=== PATIENT | female | born 1945 | race Caucasian/White ===

== ENCOUNTER → 2023-10-26 10:21 | Outpatient (REF) | payer OTHER, SELFPAY | LOC: RAD 10:21 | PROVIDERS: ATTENDING PHYSICIAN Nurse Practitioner Family | DX: M54.42 Lumbago with sciatica, left side (principal) | CPT/HCPCS: 72110 ==

== ENCOUNTER → 2023-11-01 06:46 | Outpatient (REF) | payer OTHER, SELFPAY | LOC: PAVMRI 06:46 | PROVIDERS: ATTENDING PHYSICIAN Physician Assistant; FAMILY PHYSICIAN Family Medicine | DX: M54.16 Radiculopathy, lumbar region (principal) | CPT/HCPCS: 72148 ==

== ENCOUNTER 2023-11-22 10:27 | Emergency (ER) | payer OTHER, SELFPAY ==
[2023-11-22 10:40] VITALS: BP 140/91
[2023-11-22 10:47] LABS: Glucose - Point of Care 208 mg/dl (70-99)
[2023-11-22] MEDS: NSS 1000 IV (11:44)
[2023-11-22] MEDS: ZOFRAN 4 MG IV ×2 (11:51→16:15)
[2023-11-22 11:55] LABS: % Basophils 0.2 % (0-2); % Eosinophils 0.1 % (0-6); % Immature Granulocytes 0.3 % (0-0.5); % Lymphocytes 13.7 % (20.5-51.1); % Monocytes 7.2 % (1.7-9.3); % Neutrophils 78.5 % (42.2-75.2); Absolute Lymphocytes 1.6 10^3/uL (1.2-3.4); Absolute Monocytes 0.9 10^3/uL (0.1-0.6); Absolute Neutrophils 9.3 10^3/uL (1.4-6.5); Hematocrit 45.5 % (37.0-47.0); Hemoglobin 15.5 g/dL (12.0-16.0); Mean Corp Hgb Conc. 34.1 g/dL (33.0-37.0); Mean Corpuscular Volume 88.2 fL (81.0-99.0); Mean Platelet Volume 10.3 fL (7.4-10.4); Nucleated Red Blood Cells % 0 %; Platelet Count 236 10^3/uL (130-400); Red Blood Cell Count 5.16 10^6/uL (4.20-5.40); Red Cell Dist. Width 13.5 % (11.5-14.5); White Blood Cell Count 11.9 10^3/uL (4.8-10.8)
[2023-11-22 12:09] LABS: ALT (SGPT) 36 U/L (0-35); AST (SGOT) 31 U/L (14-36); Albumin 4.1 g/dl (3.5-5.0); Alkaline Phosphatase 95 U/L (38-126); Blood Urea Nitrogen 24 mg/dl (7-17); Calcium 9.6 mg/dl (8.4-10.2); Carbon Dioxide 19 mmol/L (22-30); Chloride 107 mmol/L (98-107); Glucose 164 mg/dl (70-99); Lipase 122 U/L (23-300); Potassium 3.4 mmol/L (3.5-5.1); Sodium 135 mmol/L (135-145); Total Bilirubin 1.1 mg/dl (0.2-1.3); Total Protein 6.6 g/dl (6.3-8.2); eGFR > 60.00
[2023-11-22 12:20] LABS: Troponin I < 0.012 ng/ml
[2023-11-22 13:47] LABS: Urine Albumin Trace (Neg - Trace); Urine Bilirubin Negative (Negative); Urine Character Clear (Clear); Urine Color Yellow; Urine Glucose Negative (Negative); Urine Ketone 2+ (Negative); Urine Leukocyte 1+ (Negative); Urine Nitrite Negative (Negative); Urine Occult Blood Trace (Negative); Urine Urobilinogen Negative (Neg - 1+); Urine pH 6.5 (5.0-9.0)
[2023-11-22 14:07] LABS: Urine Mucus Many; Urine Squamous Cell 21-25 /LPF (Few)
[2023-11-22 14:09] LABS: Urine Bacteria Many (Negative); Urine Red Blood Cell 0-2 /HPF (0-2); Urine White Cell 60-70 /HPF (0-5)
[2023-11-22 14:42] VITALS: BP 185/88
[2023-11-22 14:44] VITALS: BP 185/88
--- NOTE | 2023-11-22 15:42 | ED.GENMED ---
Addendum entered and electronically signed by Dread Montero Jr., PA-C 11/26/23 09:22:
Patient was contacted already started on antibiotics by the primary care doctor that reviewed the culture result.
Original Note:
History of Present Illness
General
Chief Complaint: Abnormal Lab Value
Source: patient, spouse and family
Exam Limitations: none
Time Seen by Provider: 11/22/23 11:02
Nursing documentation reviewed up to this point in time: agreed with
Travel History
Have you had any contact with someone who has COVID-19?: No
Do you have any symptoms of coronavirus? Fever > 100 degrees, chills, cough, shortness of breath, sore throat, loss of taste or smell, muscle aches, or headache?: No
History of Present Illness
History of Present Illness:
78-year-old female with Melba history of diabetes and chronic back pain recent epidural of 3 days ago for the back pain presenting to the emergency department today with concerns of nausea vomiting diarrhea as well as abdominal cramping of 24
hours. Additionally claims that she abruptly stopped oxycodone that she was taking 40 mg daily for 2 weeks stopped this 3 days ago. Denies chest pain shortness breath has had some shakiness. Denies numbness weakness.
Review of Systems
Review of Systems
Allergies reviewed?: Yes
All Other Systems: ROS reviewed and negative except as documented in HPI and ROS
Phy Exam
Physical Exam
Physical Exam:
GENERAL: Alert , in no apparent distress
EYE: pupils equal and reactive
NECK: Supple, no significant adenopathy.
ENT: o/p clr, mmm.
CARDIAC: Regular rate and rhythm .
LUNGS: Clear breath sounds bilaterally, no acute respiratory distress, no wheezes/rales/rhonchi
ABDOMEN: Mild vague abdominal pain no specific guarding
NEUROLOGICAL: Alert and oriented, no focal neuro deficits
SKIN: Warm and dry, skin intact.
MUSCULOSKELETAL: No edema, well perfused.
PSYCH: Normal and appropriate interaction.
Course
Orders/Labs/Results
Orders:
Orders
11/22/23 11:29
Cardiac Monitoring- Treatment ONCE
0.9% Sodium Chloride 1000 ml [Nss] 1,000 ml IV BOLUS
Ondansetron Injectable [Zofran] 4 mg IV NOW STA
11/22/23 11:36
EKG [Electrocardiogram (*1)] Urgent
Reason for Study: Fatigue / Weakness
EKG- Treatment ONCE
11/22/23 11:42
Complete Blood Count/With Diff Urgent
Comprehensive Metabolic Panel Urgent
Lactic Acid Urgent
Lipase Urgent
Troponin I Urgent
11/22/23 12:29
CT Abd/Pel (IV only)-DH only Urgent
Comment:
Reason For Exam: abd pain
11/22/23 13:35
Urinalysis Reflex To Culture Urgent
Date Specimen was Collected: 11/22/23
Time Specimen was Collected: 13:34
Urine Microscopic Reflex Cult Urgent
Urine Culture Urgent
INDY Source: U
Specimen Description:
Date Specimen was Collected: 11/22/23
Time Specimen was Collected: 13:34
11/22/23 15:42
Ondansetron Injectable [Zofran] 4 mg IV NOW STA
Abnormal Lab Results
11/22/23 11/22/23 11/22/23
10:44 11:42 13:35
WBC 11.9 H 10^3/uL
(4.8-10.8)
Absolute Neuts (auto) 9.3 H 10^3/uL
(1.4-6.5)
Absolute Monos (auto) 0.9 H 10^3/uL
(0.1-0.6)
Neutrophils % 78.5 H %
(42.2-75.2)
Lymphocytes % 13.7 L %
(20.5-51.1)
Potassium 3.4 L mmol/L
(3.5-5.1)
Carbon Dioxide 19 L mmol/L
(22-30)
BUN 24 H mg/dl
(7-17)
Glucose 164 H mg/dl
(70-99)
ALT 36 H U/L
(0-35)
Urine Ketones 2+ A
(Negative)
Ur Occult Blood Reflex Trace A
(Negative)
Leukocyte Esterase Rfl 1+ A
(Negative)
Urine WBC (Reflex) 60-70 A /HPF
(0-5)
Urine Bacteria (Reflex) Many A
(Negative)
POC Glucose 208 H mg/dl
(70-99)
11/22/23 11:42
11/22/23 11:42
Vital Signs
Initial and Last Documented VS:
Initial Vital Signs
Temp Pulse Resp BP Pulse Ox
97.3 F 77 18 140/91 98
11/22/23 10:40 11/22/23 10:40 11/22/23 10:40 11/22/23 10:40 11/22/23 10:40
Last Documented Vital Signs
Temp Pulse Resp BP Pulse Ox
97.3 F 75 25 185/88 97
11/22/23 10:40 11/22/23 14:44 11/22/23 14:44 11/22/23 14:44 11/22/23 14:44
MDM/Problems Addressed
MDM/Problems Addressed:
78-year-old female presenting to the emergency department today with concerns of nausea vomiting diarrhea over the past 24 hours. Upon arrival here vital signs normal. Patient appears somewhat uncomfortable and is dry heaving. She does have some
tenderness throughout the abdomen concerning the CT scan was obtained white count of 11.9 slightly dry on labs was given fluids with Zofran as well with improvement of symptoms. Did have 1 episode of vomiting after multiple hours in the ER. CT
scan showing likely gastroenteritis and otherwise incidental findings. At time of reassessment after this patient claims she feels much better she was given additional dose of Zofran and this point feels okay for discharge. Consistent
gastroenteritis potentially to some degree of opioid withdrawal considering abrupt cessation after 2 weeks of continuous use.
*Critical Care Note
Total Time (30-74mins, 75-104mins- exclusive of procedures): Not Applicable
ED Attending Note
-
Portions of this chart may have been created with voice recognition software.� Occasional wrong word or��sound alike� substitutions may have occurred due to the inherent limitations of voice recognition software.
Discharge Plan
Departure
Patient Disposition: Home (Routine Discharge)
Date of Disposition: 11/22/23
Time of Disposition: 15:59
Patient with high blood pressure during this ER visit?: No
Condition: Good
Covid-19: Not Applicable
Discharge Problem:
Vomiting, Generalized weakness, Tremor
Instructions: Viral gastroenteritis in adults
Prescriptions:
New
ondansetron 4 mg tablet,disintegrating
4 mg PO Q6H PRN (Reason: nausea and vomiting) Qty: 7 0RF
No Action
atorvastatin 40 mg Tablet
40 mg PO HS
acetaminophen [Tylenol] 325 mg Tablet
650 mg PO DAILYPRN PRN (Reason: mild pain)
polyethylene glycol 3350 [Miralax] 17 gram Powder In Packet
17 g PO DAILY
lisinopril 20 mg Tablet
20 mg PO DAILY
famotidine 40 mg Tablet
40 mg PO QPM
aspirin 81 mg Tablet,Delayed Release (Dr/Ec)
81 mg PO HS
Januvia 25 mg Tablet
25 mg PO DAILY
Referrals:
Shirley Castillo DO [Family Provider] -
Activity Restrictions/Additional Instructions:
You came to the emergency department today with concerns of nausea vomiting diarrhea abdominal cramping here you had a reassuring evaluation your CT scan showed likely gastroenteritis. Please take the Zofran as needed every 6 hours and stay
hydrated. Please have close with the primary care doctor. Return to the emergency department for any worsening, new or concerning symptoms.
Interventions
Interventions:
*Risk Screen - Suicide Last Done: 11/22/23 11:45
*Neglect/Abuse Screening Last Done: 11/22/23 11:45
ED- Fall Risk Assessment Last Done: 11/22/23 11:45
*ED COVID-19 Vaccine History Last Done: 11/22/23 11:45
Discharge Date and Time
Print Language: SPANISH
[2023-11-22 16:18] VITALS: BP 177/78
== END 2023-11-22 16:35 | disposition home or self-care (01) ==
LOC: EMR 10:27
PROVIDERS: Physician Assistant; EMERGENCY PHYSICIAN Emergency Medicine; FAMILY PHYSICIAN Family Medicine
DX: R11.2 Nausea with vomiting, unspecified (principal); R19.7 Diarrhea, unspecified; R10.819 Abdominal tenderness, unspecified site; R25.1 Tremor, unspecified; R53.1 Weakness; E11.9 Type 2 diabetes mellitus without complications; M54.9 Dorsalgia, unspecified; G89.29 Other chronic pain; Z79.82 Long term (current) use of aspirin; Z79.84 Long term (current) use of oral hypoglycemic drugs; Z88.6 Allergy status to analgesic agent; Z88.8 Allergy status to other drugs, medicaments and biological substances; Z91.018 Allergy to other foods
CPT/HCPCS: 99285; 96361; 96374; 96376; 74177; 80053; 81003; 81015; 82962; 83605; 83690; 84484; 85025; 87077; 87086; 87186; 93005; Q9967

== ENCOUNTER 2023-11-27 23:34 | Observation (INO) | payer OTHER, SELFPAY ==
[2023-11-27 15:58] VITALS: BMI 27.0
[2023-11-27 16:01] VITALS: BP 148/68
[2023-11-27 16:28] LABS: % Basophils 0.4 % (0-2); % Eosinophils 1.1 % (0-6); % Immature Granulocytes 1.1 % (0-0.5); % Lymphocytes 29.4 % (20.5-51.1); % Monocytes 9.4 % (1.7-9.3); % Neutrophils 58.6 % (42.2-75.2); Absolute Eosinophils 0.1 10^3/uL (0-0.7); Absolute Immature Granulocytes 0.1 10^3/uL (0-0.05); Hematocrit 42.4 % (37.0-47.0); Mean Corp Hgb Conc. 35.4 g/dL (33.0-37.0); Mean Corpuscular Hgb 30.1 pg (27.0-31.0); Mean Platelet Volume 9.7 fL (7.4-10.4); Nucleated Red Blood Cells % 0 %; Platelet Count 357 10^3/uL (130-400); Red Blood Cell Count 4.99 10^6/uL (4.20-5.40); Red Cell Dist. Width 13.3 % (11.5-14.5); White Blood Cell Count 10.3 10^3/uL (4.8-10.8)
[2023-11-27 16:40] LABS: ALT (SGPT) 20 U/L (0-35); AST (SGOT) 23 U/L (14-36); Alkaline Phosphatase 85 U/L (38-126); Blood Urea Nitrogen 10 mg/dl (7-17); Calcium 9.6 mg/dl (8.4-10.2); Carbon Dioxide 18 mmol/L (22-30); Chloride 103 mmol/L (98-107); Glucose 109 mg/dl (70-99); Lipase 150 U/L (23-300); Potassium 3.6 mmol/L (3.5-5.1); Sodium 131 mmol/L (135-145); Total Bilirubin 0.6 mg/dl (0.2-1.3); Total Protein 6.6 g/dl (6.3-8.2); eGFR 57.66
--- NOTE | 2023-11-27 19:28 | PHANOTE ---
11/27/2023, med rec tech, spoke to pt. to obtain their med. history; per pt., they have not taken most of their routine meds. in roughly 1.5 weeks because they have not been feeling well and have struggled to keep them down.
[2023-11-27 20:49] LABS: Venous Blood Gas B.E. -2.4 mmol/L (-4 to +4); Venous Blood Gas HCO3 20.2 mmol/L (22-27); Venous Blood Gas O2 Sat % 88.4 %; Venous Blood Gas pCO2 29 mmHg (35-48); Venous Blood Gas pH 7.45 (7.32-7.43); Venous Blood Gas pO2 53 mmHg (30-50)
[2023-11-27] MEDS: LR 500 IV (20:56)
[2023-11-27] MEDS: TYLENOL 650 MG PO (20:57)
[2023-11-27] MEDS: BACTRIM DS 800 MG/160 MG 1 TABLET PO (20:57)
[2023-11-27 21:06] VITALS: BP 167/68
--- NOTE | 2023-11-27 21:30 | ED.GENMED ---
History of Present Illness
General
Chief Complaint: Weakness
Time Seen by Provider: 11/27/23 19:13
Travel History
Have you had any contact with someone who has COVID-19?: No
Do you have any symptoms of coronavirus? Fever > 100 degrees, chills, cough, shortness of breath, sore throat, loss of taste or smell, muscle aches, or headache?: No
History of Present Illness
History of Present Illness:
78-year-old female with history of hypertension, hyperlipidemia, and ldu-[id number] diabetes presents to the emergency department for evaluation of general weakness. She was seen in this emergency department late last week for vomiting and
diarrhea, at that time was diagnosed with gastroenteritis. She was treated with IV fluids and discharged. Follow-up urine culture was noted to be positive and she was started on oral antibiotics yesterday, has taken 2 doses thus far. She
apparently was feeling well yesterday and was a little bit more alert and active however today became increasingly lethargic. I slept for a large portion of the day. Does not feel steady ambulating. Denies any abdominal pain at this point.
Denies any chest pain but does feel short of breath with exertion
Review of Systems
Review of Systems
Allergies reviewed?: Yes
All Other Systems: ROS reviewed and negative except as documented in HPI and ROS
Phy Exam
Physical Exam
Physical Exam:
GEN: Well appearing, NAD, WDWN
HEENT: Oral mucosa moist, no scleral icterus
Cardiac: Regular rate rate and rhythm, no murmurs
Lung: No respiratory distress, no tachypnea, lungs clear to auscultation bilaterally
Abdomen: Soft, nontender
MSK: No gross deformity or injuries
Skin: Good color, no pallor or jaundice, no rashes
Neuro: Somnolent but arouses easily. Fully oriented. Moves all extremities freely. Appears globally weak
Psych: Calm, cooperative
Course
Orders/Labs/Results
Orders:
Orders
11/27/23 16:10
Complete Blood Count/With Diff Urgent
Comprehensive Metabolic Panel Urgent
Lipase Urgent
Magnesium Urgent
Comment: ADD ON
11/27/23 19:34
Lactated Ringers [Lr] 500 ml IV BOLUS
11/27/23 19:35
Dextrose 5%/0.45%Sodchl 500 ml [D5/0.45%NaCl] 500 ml IV 1,000 mls/hr
11/27/23 20:41
Venous Blood Gas Urgent
%Oxygen/Room Air: 97
Blood Culture Q30M
INDY Source: Blood/Venous
Specimen Description:
Blood Culture Q30M
INDY Source: Blood/Venous
Specimen Description:
11/27/23 20:45
Acetaminophen [Tylenol] 650 mg PO NOW STA
Sulfamethox./Trimethoprim Ds [Bactrim Ds 800 mg/160 mg] 1 tablet PO NOW STA
11/27/23 21:13
Add On- LAB Urgent
Tests Added?: magnesium
11/27/23 21:31
CR Chest - 2 Views Urgent
Comment:
Reason For Exam: SOB
Abnormal Lab Results
11/27/23 11/27/23
16:10 20:41
Abs Immat Gran (auto) 0.1 H 10^3/uL
(0-0.05)
Absolute Monos (auto) 1.0 H 10^3/uL
(0.1-0.6)
Immature Gran % 1.1 H %
(0-0.5)
Monocytes % 9.4 H %
(1.7-9.3)
VBG pH 7.45 H
(7.32-7.43)
VBG pCO2 29 L mmHg
(35-48)
VBG pO2 53 H mmHg
(30-50)
VBG HCO3 20.2 L mmol/L
(22-27)
Sodium 131 L mmol/L
(135-145)
Carbon Dioxide 18 L mmol/L
(22-30)
Glucose 109 H mg/dl
(70-99)
11/27/23 16:10
11/27/23 16:10
Vital Signs
Initial and Last Documented VS:
Initial Vital Signs
Temp Pulse Resp BP Pulse Ox
98.9 F 80 16 148/68 99
11/27/23 16:01 11/27/23 16:01 11/27/23 16:01 11/27/23 16:01 11/27/23 16:01
Last Documented Vital Signs
Temp Pulse Resp BP Pulse Ox
98.9 F 85 16 160/72 98
11/27/23 16:01 11/27/23 22:38 11/27/23 22:38 11/27/23 22:38 11/27/23 22:38
MDM/Problems Addressed
MDM/Problems Addressed:
Patient's workup is overall reassuring. She does have mild metabolic alkalosis with anion gap, this is driven by hypovolemia in the setting of poor p.o. intake. She was resuscitated with Ringer's and D5 half saline with good results. Chest x-ray
was obtained with reports of shortness of breath since significant electrolyte derangement. Does not medically require hospitalization however she is quite unsteady with ambulation and is not comfortable discharged home. Will place in observation
for therapy evaluation and consideration of rehab if deemed appropriate. No indication of urosepsis. Do not feel there is any need for imaging of the abdomen at this time
*Critical Care Note
Total Time (30-74mins, 75-104mins- exclusive of procedures): Not Applicable
ED Attending Note
-
Portions of this chart may have been created with voice recognition software.� Occasional wrong word or��sound alike� substitutions may have occurred due to the inherent limitations of voice recognition software.
Discharge Plan
Departure
Patient Disposition: Admit
Date of Disposition: 11/27/23
Time of Disposition: 22:48
Admit to: Med/Surg
Presentation/result/management discussed w/ accepting MD/DO: Hospitalist
Discharge Problem:
Dehydration, Generalized weakness
Prescriptions:
No Action
atorvastatin 40 mg Tablet
40 mg PO HS
polyethylene glycol 3350 [Miralax] 17 gram Powder In Packet
17 g PO DAILY
lisinopril 20 mg Tablet
20 mg PO DAILY
famotidine 40 mg Tablet
40 mg PO QPM
aspirin 81 mg Tablet,Delayed Release (Dr/Ec)
81 mg PO HS
Januvia 25 mg Tablet
25 mg PO DAILY
ondansetron 4 mg tablet,disintegrating
4 mg PO Q6H PRN (Reason: nausea and vomiting) Qty: 7 0RF
acetaminophen [Tylenol Extra Strength] 500 mg Tablet
500 mg PO DAILYPRN PRN (Reason: mild pain)
sulfamethoxazole-trimethoprim [Bactrim DS] 800-160 mg Tablet
1 tab PO BID
Patient Comments:
11/27/2023, pt. filled this med. on 11/26/2023 and is instructed to take one tablet BID for 4 days; pt. started taking this med. yesterday (11/26/2023).
Referrals:
Shirley Castillo DO [Family Provider] -
Interventions
Interventions:
*Risk Screen - Suicide Last Done: 11/27/23 22:00
*General Assessment Last Done: 11/27/23 22:02
*Neglect/Abuse Screening Last Done: 11/27/23 22:00
*ED COVID-19 Vaccine History Last Done: 11/27/23 22:00
ED- Cardiac Assessment Last Done: 11/27/23 20:00
ED- Neurological Assessment Last Done: 11/27/23 20:00
ED- Pulmonary Assessment Last Done: 11/27/23 20:00
Discharge Date and Time
Print Language: PORTUGUESE
[2023-11-27 21:45] LABS: Magnesium 1.8 mg/dl (1.6-2.3)
[2023-11-27] MEDS: D5/0.45%NACL 500 IV (21:47)
[2023-11-27 22:38] VITALS: BP 160/72
--- NOTE | 2023-11-27 23:13 | HPS.HSE ---
Family Physician
-
Family Physician: Shirley Castillo
Chief Complaint
-
Generalized weakness, lethargy, current E. coli UTI
History of Present Illness
78-year-old female with increased lethargy and sleeping most of the day. She started Bactrim yesterday has taken 3 doses since then for urine culture that was positive for E. coli on 11/21/2023. She was treated also at that time for viral
gastroenteritis with vomiting and diarrhea and improved with IV fluids.
She denies fever, chills, chest pain, palpitations, shortness breath, cough, abdominal pain, current nausea, vomiting, diarrhea. She had recent L4 lumbar epidural on 11/19/2023. She has past medical history of hypertension, hyperlipidemia, DM 2,
UTIs, ovarian cyst, skin CA, back pain, COVID July 2020 vaccinated x 5 shots.
Medical History
Past Medical History
Past Medical History: Reports Other
Additional Past Medical History:
HTN
HLD
UTIs
ovarian cyst
DM2
skin cancer
back pain
Past Surgical History: Reports Other
Additional Past Surgical History:
Ovarian cyst removal 2018
L4 epidural injection 11/19/2023
Social History
Tobacco: Non-smoker
Alcohol: None
Drug: None
Personal:
Living: With Family ()
Employment: Retired
Family History
Family History: Other (Mother age 95 old age, father CAD)
Allergies / Home Medications
Allergies reflects when Allergies were last updated in [employer].
Home Medications with original date entered in [employer]
Allergy/Medication List:
Allergies
Allergy/AdvReac Type Severity Reaction Status Date / Time
naproxen [From Aleve] Allergy Hives Verified 11/27/23 16:06
pineapple Allergy Swelling Verified 11/27/23 16:06
ezetimibe AdvReac Unknown Verified 11/27/23 16:06
Home Medications
aspirin 81 mg tablet,delayed release 81 mg PO HS 11/22/23
atorvastatin 40 mg tablet 40 mg PO HS 11/22/23
famotidine 40 mg tablet 40 mg PO QPM 11/22/23
lisinopril 20 mg tablet 20 mg PO DAILY 11/22/23
ondansetron 4 mg disintegrating tablet 4 mg PO Q6H PRN nausea and vomiting #7 tabs 11/22/23
polyethylene glycol 3350 17 gram oral powder packet (Miralax) 17 g PO DAILY 11/22/23
sitagliptin phosphate 25 mg tablet (Januvia) 25 mg PO DAILY 11/22/23
acetaminophen 500 mg tablet (Tylenol Extra Strength) 500 mg PO DAILYPRN PRN mild pain 11/27/23
sulfamethoxazole 800 mg-trimethoprim 160 mg tablet (Bactrim DS) 1 tab PO BID 11/27/23
Review of Systems
-
History Source: Patient and Family (per daughter)
A 12 point ROS was completed and negative except as noted: Yes
Constitutional: Reports Fatigue; Denies Fever or Chills
EENT: Denies Sore Throat or Runny Nose
Respiratory: Denies Cough or Trouble Breathing
Cardiac: Denies Chest Pain, Diaphoresis, Palpitations or Syncope
Abdomen/GI: Denies Abdominal Pain, Nausea, Vomiting, Diarrhea, Constipated, Bloody Stools or Black Stools
: Denies Dysuria, Frequency, Flank Pain, Incontinence, Difficulty Voiding or Urgency
Musculoskeletal: Denies Joint Pain or Edema
Skin: Denies Itching or Rash
Neurological: Reports Weakness (Generalized); Denies Dizzy or Headache
Endocrine: Reports No Symptoms
Hematologic/Lymphatic: Reports No Symptoms
Psych: Reports Calm
Physical Exam
Vital Signs
Vital Signs
Temp Pulse Resp BP Pulse Ox
98.9 F 85 16 160/72 98
11/27/23 16:01 11/27/23 22:38 11/27/23 22:38 11/27/23 22:38 11/27/23 22:38
Physical Exam
General: No Apparent Distress, Comfortable and Conversant; No Pain, Fever or Chills
HEENT: NormoCephalic, Anicteric, PERRLA, [place] Conjunctivae and Other (Dry oral mucosa)
Respiratory: Clear; No Wheezes, Rales or Rhonchi
Cardiac: S1/S2 and Regular Rhythm; No Murmur, Rub, Gallop or Peripheral Edema
Breast: Deferred by me
GI: Soft, Non Tender, Non Distended, Normal Bowel Sounds and No Hepatosplenomegaly
Rectal: Deferred by Provider
Genito-urinary: Deferred by me
Musculoskeletal: No Clubbing, No Cyanosis and No Edema
Skin: Warm and Dry; No Rash or Jaundice
Neuro: AO x 3, No Motor Deficits, Nonfocal/grossly intact, Cranial Nerves Intact and No Sensory Deficits; No Slurred Speech, Facial Droop or Tremors
Psych: Calm
Laboratory Results
-
11/27/23 16:10
11/27/23 16:10
Laboratory Results
Total Bilirubin 0.6 mg/dl (0.2-1.3) 11/27/23 16:10
AST 23 U/L (14-36) 11/27/23 16:10
ALT 20 U/L (0-35) 11/27/23 16:10
Alkaline Phosphatase 85 U/L (38-126) 11/27/23 16:10
Lipase 150 U/L (23-300) 11/27/23 16:10
Data Reviewed
-
Lab Data: Labs Reviewed by me
Impression/Plan
-
Impression/plan:
Observation MedSurg
#Generalized weakness likely secondary to current Dehydration/Bactrim vs E. coli UTI
#E. coli UTI Asymptomatic -Per urine culture grew E. coli on 11/22/2023
-Patient started Bactrim yesterday DS took 2 tablets-will STOP BACTRIM
-Change ABX to IV Rocephin
-Blood cultures x 2(had negative blood cultures on 11/22/2023)
-Check COVID swab
-IV NSS 100 cc/hr x 1 liter
-PT/OT/case management consult
#Recent gastroenteritis 11/22/2023
-Resolved
#HTN�benign
160/
-Continue lisinopril 20 mg daily
#HLD
-Continue atorvastatin 40 mg at bedtime
#DM2
Accu-Cheks with SSI, check HgbA1c
-Continue Januvia 25 mg daily
#GERD
-Continue Pepcid 40 mg every afternoon
#Chronic back pain
-Continue Tylenol as needed
-Recent epidural L4 11/19/2023
DVT prophylaxis
SCDs
Full code
--- NOTE | 2023-11-27 23:50 | W.PN.UPDATE ---
Update Note
Progress Note Update
Patient seen and examined independently. Agree with findings and plan as set forth in today's H&P by MEGHNA Hatch.
Patient is a 78y F with PMH significant for hypertension, DM-II and recent hospitalization for gastroenteritis who presents to ED complaining of lethargy and fatigue. Patient was feeling improved at the time of her recent discharge. She was
called and notified that her urine culture done in the hospital was positive for infection. She was started on abx with Bactrim DS BID and has taken 3 doses thus far.
Ass:
Lethargy / Fatigue
Abnormal Urine Culture
Recent Gastroenteritis
Benign Hypertension
DM-II
GERD
Chronic Back Pain
Plan:
Observe overnight for further evaluation and treatment.
Fatigue either due to med effect (seems likely) versus deconditioning after recent GI illness, volume losses, etc.
Stop Bactrim.
Will give 2 more doses of IV ceftriaxone for complete therapy for uncomplicated E coli UTI. No urinary symptoms at present.
IVF overnight.
PT / OT in the AM.
Follow for clinical improvement.
Continue other usual outpatient medications.
[2023-11-28] VITALS (8 sets, daily range): BP systolic 134–179; BP diastolic 59–86; BMI 24.2
[2023-11-28] MEDS: ROCEPHIN IV (00:23)
[2023-11-28] MEDS: NSS 1000 IV (01:06)
[2023-11-28] MEDS: ROCEPHIN 1000 MG IV (01:06)
[2023-11-28] MEDS: STERILE WATER FOR INJECTION 10 ML IV (01:06)
[2023-11-28] MEDS: ZOFRAN ODT (ORALLY DISINTEGRATING) 4 MG PO (01:12)
[2023-11-28 01:20] LABS: Urine Albumin Negative (Neg - Trace); Urine Bilirubin Negative (Negative); Urine Color Yellow; Urine Glucose Trace (Negative); Urine Ketone 1+ (Negative); Urine Leukocyte 2+ (Negative); Urine Nitrite Negative (Negative); Urine Occult Blood Negative (Negative); Urine Urobilinogen Negative (Neg - 1+)
[2023-11-28 01:23] LABS: Urine Character Slightly Cloudy (Clear)
[2023-11-28 01:30] LABS: COVID-19 Antigen Negative (Negative)
[2023-11-28 02:07] LABS: Urine Bacteria Many (Negative); Urine Red Blood Cell 0-2 /HPF (0-2); Urine Squamous Cell >30 /LPF (Few); Urine Urothelial Cell >30 /LPF (FEW); Urine White Cell >100 /HPF (0-5)
[2023-11-28 05:30] LABS: % Basophils 0.3 % (0-2); % Eosinophils 0.9 % (0-6); % Immature Granulocytes 0.7 % (0-0.5); % Monocytes 8.8 % (1.7-9.3); % Neutrophils 64.3 % (42.2-75.2); Absolute Eosinophils 0.1 10^3/uL (0-0.7); Absolute Immature Granulocytes 0.1 10^3/uL (0-0.05); Absolute Lymphocytes 2.2 10^3/uL (1.2-3.4); Absolute Monocytes 0.8 10^3/uL (0.1-0.6); Absolute Neutrophils 5.6 10^3/uL (1.4-6.5); Hematocrit 39.6 % (37.0-47.0); Hemoglobin 13.5 g/dL (12.0-16.0); Mean Corp Hgb Conc. 34.1 g/dL (33.0-37.0); Mean Corpuscular Hgb 29.5 pg (27.0-31.0); Mean Corpuscular Volume 86.5 fL (81.0-99.0); Mean Platelet Volume 9.5 fL (7.4-10.4); Nucleated Red Blood Cells % 0 %; Platelet Count 320 10^3/uL (130-400); Red Blood Cell Count 4.58 10^6/uL (4.20-5.40); Red Cell Dist. Width 13.3 % (11.5-14.5); White Blood Cell Count 8.6 10^3/uL (4.8-10.8)
[2023-11-28 05:57] LABS: ALT (SGPT) 16 U/L (0-35); AST (SGOT) 20 U/L (14-36); Albumin 3.4 g/dl (3.5-5.0); Alkaline Phosphatase 73 U/L (38-126); Blood Urea Nitrogen 10 mg/dl (7-17); Calcium 9.1 mg/dl (8.4-10.2); Carbon Dioxide 18 mmol/L (22-30); Chloride 107 mmol/L (98-107); Estimated Creatinine Clearance 48 ml/min; Glucose 110 mg/dl (70-99); Potassium 3.5 mmol/L (3.5-5.1); Sodium 134 mmol/L (135-145); Total Bilirubin 0.4 mg/dl (0.2-1.3); Total Protein 5.7 g/dl (6.3-8.2); eGFR > 60.00
--- NOTE | 2023-11-28 07:38 | EDRN ---
Several hospitalists TT to get diet order adjusted so she can have breakfast.
[2023-11-28] MEDS: ZESTRIL 20 MG PO (08:43)
--- NOTE | 2023-11-28 09:31 | CM ---
CM met with patient and daughter in room. Patient confirmed demographics. Patient lives with independently. Patient does not have a history of VN or SNF. Patient would be agreeable to SNF if PT made the recommendation. Patient stated that
she has difficulty descending the stairs and 'sits on her butt' . Patient has a walker for ambulation. Patient recently has a spinal injection and was advised to post pone PT for two weeks. Patient is active with her PCP. Patient uses [facility] for
medication services. Patient would only be reluctant to going to [facility] for SNF.
CM will await PT evaluation for further discharge planning efforts.
[2023-11-28 09:42] LABS: Glucose - Point of Care 106 mg/dl (70-99)
[2023-11-28] MEDS: TYLENOL 650 MG PO ×2 (09:59→20:55)
--- NOTE | 2023-11-28 10:49 | W.PN.HOSP.TC ---
Today's Communication/Plan
-
ivf for now
iv abx
await culture data
Assessment / Plan
Assessment / Plan
#Generalized weakness likely secondary to current Dehydration/Bactrim vs E. coli UTI
#E. coli UTI Asymptomatic -Per urine culture grew E. coli on 11/22/2023
-Patient started Bactrim yesterday DS took 2 tablets-will STOP BACTRIM
-Change ABX to IV Rocephin
-Blood cultures x 2(had negative blood cultures on 11/22/2023)
-Check COVID swab negative
-IV NSS 100 cc/hr and stop later tonight
-PT/OT/case management consult
#Recent gastroenteritis 11/22/2023
-Resolved
#HTN�benign-elevated
-Continue lisinopril 20 mg daily
-If persistently elevated will need meds adjustment. Will add as needed meds
#HLD
-Continue atorvastatin 40 mg at bedtime
#DM2
Accu-Cheks with SSI, check HgbA1c
-Continue Januvia 25 mg daily
#GERD
-Continue Pepcid 40 mg every afternoon
#Chronic back pain
-Continue Tylenol as needed
-Recent epidural L4 11/19/2023
DVT prophylaxis
SCDs/Lovenox
Full code
Discussed with family member at bedside
Anticipated Discharge: Within 24 hours
Subjective/Interval History
-
Date of Service: November 28, 2023
States she is feeling better compared to yesterday denies any abdominal pain nausea vomiting
Tolerated diet
Had increased dysuria and urgency over the weekend
Objective Data
-
Labs:
Laboratory Results
11/28/23
05:22
WBC 8.6
Hgb 13.5
Hct 39.6
Plt Count 320
Sodium 134 L
Potassium 3.5
Chloride 107
Carbon Dioxide 18 L
BUN 10
Creatinine 0.9
Glucose 110 H
Calcium 9.1
Total Bilirubin 0.4
AST 20
ALT 16
Alkaline Phosphatase 73
Vital Signs:
Vital Signs
Temp Pulse Resp BP Pulse Ox
99.1 F 85 16 170/78 98
11/28/23 07:48 11/28/23 07:48 11/28/23 07:48 11/28/23 07:48 11/28/23 07:48
Physical Exam
-
General: Well Developed and No Apparent Distress
HEENT: Normocephalic, Atraumatic and Moist Mucous Membranes
Respiratory: Clear to Auscultation
Cardiac: Regular Rhythm and S1/S2; Negative Murmur, Rub or Gallop
GI: Soft, Nontender, Nondistended and Normal Bowel Sounds; Negative Organomegaly
Rectal: Deferred by Provider
Musculoskeletal: No Clubbing, No Cyanosis, No Edema and Normal Gait & Station (Was seen ambulating in the hallway and walking with PT)
Skin: Negative Rash
Neuro: Awake, AO x 3, No Motor Deficits and Nonfocal/Grossly Intact
Psych: Calm
Data Reviewed
-
Total Time Spent with Patient (in minutes): 55
--- NOTE | 2023-11-28 12:22 | PTOTSP ---
pt currently requires supervision to no assistance to complete simple ADLs, functional transfers, ambulation. pt is currently using a walker; does not at baseline. educated pt on back precautions and impact on ADLs. pt verbalized understanding. no
acute OT needs identified, will sign off and defer to PT.
[2023-11-28 13:53] LABS: Glucose - Point of Care 108 mg/dl (70-99)
--- NOTE | 2023-11-28 15:45 | PTCARENOTE ---
11/27- Patient transferred and oriented to unit without issue. She is AAOX3 but tired; Denies pain but states some nausea with eating; Skin CDI; Skin=warm/pink/dry; +PulsesX4; Lungs CTA BL. Med/Surg. Patient denies any needs at this time.
[2023-11-28 17:46] LABS: Glucose - Point of Care 110 mg/dl (70-99)
[2023-11-28] MEDS: PEPCID 40 MG PO (17:47)
[2023-11-28] MEDS: ASPIR LOW (ENTERIC COATED) 81 MG PO (20:48)
[2023-11-28] MEDS: LIPITOR 40 MG PO (20:48)
[2023-11-28 21:27] LABS: Glucose - Point of Care 148 mg/dl (70-99)
[2023-11-29] MEDS: ROCEPHIN 1000 MG IV (00:30)
[2023-11-29] MEDS: STERILE WATER FOR INJECTION 10 ML IV (00:31)
[2023-11-29] MEDS: ZOFRAN ODT (ORALLY DISINTEGRATING) 4 MG PO (00:35)
[2023-11-29] MEDS: TYLENOL 650 MG PO (02:50)
[2023-11-29 07:20] LABS: % Basophils 0.5 % (0-2); % Eosinophils 2.3 % (0-6); % Immature Granulocytes 0.9 % (0-0.5); % Lymphocytes 38.6 % (20.5-51.1); % Monocytes 9.9 % (1.7-9.3); % Neutrophils 47.8 % (42.2-75.2); Absolute Eosinophils 0.2 10^3/uL (0-0.7); Absolute Immature Granulocytes 0.1 10^3/uL (0-0.05); Absolute Lymphocytes 2.9 10^3/uL (1.2-3.4); Absolute Monocytes 0.7 10^3/uL (0.1-0.6); Absolute Neutrophils 3.5 10^3/uL (1.4-6.5); Hematocrit 37.5 % (37.0-47.0); Mean Corp Hgb Conc. 34.7 g/dL (33.0-37.0); Mean Corpuscular Volume 86.6 fL (81.0-99.0); Mean Platelet Volume 9.7 fL (7.4-10.4); Nucleated Red Blood Cells % 0 %; Platelet Count 324 10^3/uL (130-400); Red Blood Cell Count 4.33 10^6/uL (4.20-5.40); Red Cell Dist. Width 13.8 % (11.5-14.5); White Blood Cell Count 7.4 10^3/uL (4.8-10.8)
[2023-11-29 07:30] VITALS: BP 144/64
[2023-11-29 07:34] LABS: Glucose - Point of Care 105 mg/dl (70-99)
[2023-11-29 08:10] LABS: ALT (SGPT) 17 U/L (0-35); AST (SGOT) 20 U/L (14-36); Albumin 3.3 g/dl (3.5-5.0); Alkaline Phosphatase 72 U/L (38-126); Blood Urea Nitrogen 8 mg/dl (7-17); Calcium 9.3 mg/dl (8.4-10.2); Carbon Dioxide 20 mmol/L (22-30); Chloride 108 mmol/L (98-107); Estimated Creatinine Clearance 43 ml/min; Glucose 103 mg/dl (70-99); Potassium 3.6 mmol/L (3.5-5.1); Sodium 135 mmol/L (135-145); Total Bilirubin 0.4 mg/dl (0.2-1.3); Total Protein 5.7 g/dl (6.3-8.2); eGFR > 60.00
[2023-11-29] MEDS: ZESTRIL 20 MG PO (08:14)
[2023-11-29 09:58] LABS: Glycohemoglobin (HgbA1c) 7.1 % (4.0-5.6)
[2023-11-29 12:15] LABS: Glucose - Point of Care 131 mg/dl (70-99)
--- NOTE | 2023-11-29 12:20 | W.PN.HOSP.TC ---
Today's Communication/Plan
-
Po antibiotic
DC home
Assessment / Plan
Assessment / Plan
#Generalized weakness likely secondary to current Dehydration/Bactrim vs E. coli UTI
#E. coli UTI Asymptomatic -Per urine culture grew E. coli on 11/22/2023
-Patient started Bactrim yesterday DS took 2 tablets-will STOP BACTRIM
-Change ABX to IV Rocephin switch to cefdinir on discharge
-Blood cultures x 2 negative so far.
-Check COVID swab negative
-Status post IV fluid. Tolerating diet. Remains afebrile.
-PT/OT/case management consult
#Recent gastroenteritis 11/22/2023
-Resolved
#HTN�benign-elevated
-Continue lisinopril 20 mg daily
-If persistently elevated will need meds adjustment. Will add as needed meds
#HLD
-Continue atorvastatin 40 mg at bedtime
#DM2
Accu-Cheks with SSI, check HgbA1c 7.1
-Continue Januvia 25 mg daily
#GERD
-Continue Pepcid 40 mg every afternoon
#Chronic back pain
-Continue Tylenol as needed
-Recent epidural L4 11/19/2023
DVT prophylaxis
SCDs/Lovenox
Full code
PT/OT-HOME Health.
More than 30 minutes spent in discharge including
Final examination of the patient
Summarizing hospital stay
Instructions for continuing care to all relevant caregivers
Preparation of discharge records, prescriptions, and referral forms
Total time spent (in minutes): 50
Anticipated Discharge: Today
Subjective/Interval History
-
Date of Service: November 29, 2023
Patient states she is feeling back to baseline
Tolerating diet
Denies abdominal pain, nausea or vomiting
Objective Data
-
Labs:
Laboratory Results
11/29/23
06:51
WBC 7.4
Hgb 13.0
Hct 37.5
Plt Count 324
Sodium 135
Potassium 3.6
Chloride 108 H
Carbon Dioxide 20 L
BUN 8
Creatinine 0.9
Glucose 103 H
Calcium 9.3
Total Bilirubin 0.4
AST 20
ALT 17
Alkaline Phosphatase 72
Vital Signs:
Vital Signs
Temp Pulse Resp BP Pulse Ox
98.6 F 57 17 144/64 98
11/29/23 07:30 11/29/23 08:14 11/29/23 07:30 11/29/23 08:14 11/29/23 07:30
I&O
11/28/23 11/29/23 11/30/23
06:59 06:59 06:59
Intake Total 480 / 480
Balance 480 / 480
Physical Exam
-
General: Well Developed and No Apparent Distress
HEENT: Normocephalic, Atraumatic and Moist Mucous Membranes
Respiratory: Clear to Auscultation
Cardiac: Regular Rhythm and S1/S2; Negative Murmur, Rub or Gallop
GI: Soft, Nontender, Nondistended and Normal Bowel Sounds; Negative Organomegaly
Rectal: Deferred by Provider
Musculoskeletal: No Clubbing, No Cyanosis and No Edema
Skin: Negative Rash
Neuro: Awake, Alert, Oriented, AO x 3, No Motor Deficits and Nonfocal/Grossly Intact
Psych: Calm
--- NOTE | 2023-11-29 12:29 | W.DCSUMMARY ---
Discharge Summary
Discharge Data
Date of Admission: 11/27/23
Date of Discharge: 11/29/23
-
Pending Results: No
Hospital Course
78-year-old female past medical history of hypertension, hyperlipidemia, GERD, diabetes mellitus, chronic back pain who was presented with generalized weakness. Patient was seen in the ER few days ago where she was diagnosed with gastroenteritis.
Patient also with urinary tract infection was given Bactrim. Patient took few doses of Bactrim and subsequently afterwards with severe weakness. Patient admitted to hospital. Patient was started on IV fluids. Patient Bactrim was discontinued and
started IV ceftriaxone. Repeat blood cultures were checked which was negative. Urine culture same with E. coli. Patient was eval by physical and Occupational Therapy. Patient was tolerating diet and IV fluid was discontinued. IV antibiotic
transition to p.o. antibiotics. Patient was tolerating diet. No nausea or vomiting. Patient was recommended follow-up outpatient with primary doctor. Patient be discharged home.
Discharge Plan
-
Patient Disposition: Home with Home Care
Discharge Diagnosis/Procedures: Generalized weakness likely secondary to current Dehydration/Bactrim vs E. coli UTI
Condition: Fair
Diet: Low Cholesterol
Activity: With assistance and As tolerated
Driving Restrictions: As prior to admission
Referrals:
Shirley Castillo DO [Family Provider] - in less than 1 week (Follow-up with primary doctor for blood pressure management)
Prescriptions:
New
cefdinir 300 mg capsule
300 mg PO BID Qty: 6 0RF
Continued
atorvastatin 40 mg Tablet
40 mg PO HS
polyethylene glycol 3350 [Miralax] 17 gram Powder In Packet
17 g PO DAILY
lisinopril 20 mg Tablet
20 mg PO DAILY
famotidine 40 mg Tablet
40 mg PO QPM
aspirin 81 mg Tablet,Delayed Release (Dr/Ec)
81 mg PO HS
Januvia 25 mg Tablet
25 mg PO DAILY
ondansetron 4 mg tablet,disintegrating
4 mg PO Q6H PRN (Reason: nausea and vomiting) Qty: 7 0RF
acetaminophen [Tylenol Extra Strength] 500 mg Tablet
500 mg PO DAILYPRN PRN (Reason: mild pain)
Discontinued
sulfamethoxazole-trimethoprim [Bactrim DS] 800-160 mg Tablet
1 tab PO BID
Patient Comments:
11/27/2023, pt. filled this med. on 11/26/2023 and is instructed to take one tablet BID for 4 days; pt. started taking this med. yesterday (11/26/2023).
Discharge Orders:
Discharge Patient (As Directed); Ordered 11/29/23
Ordered By: Vinicio Dickerson
Discharge Date and Time
Print Language: GREEK
--- NOTE | 2023-11-29 13:40 | CM ---
OBS letter completed and placed on chart, patient is for discharge today to home with visiting nurses, options were reviewed and patient has selected [facility], [facility] liaison contacted.
Plan; Home with [facility].
--- NOTE | 2023-11-29 14:50 | VNURNOTE ---
Home Health Liaison met with patient and daughter at 1400 to discuss [facility] nurse/therapy, visits, schedule and homebound status. Patient is agreeable and understands that visits at home will be 2-3 x per week to assess and teach medical management.
[facility] brochure provided with contact information. Patient is aware that [facility] will contact her for start of care in 1-2 days after discharge from .
[facility] referral completed in [facility].
[2023-11-29 15:05] VITALS: BP 168/71
== END 2023-11-29 15:15 | disposition home health service (06) ==
LOC: 4 WEST ACU 23:34
PROVIDERS: Clinical Nurse Specialist Family Health; Emergency Medicine; Physician Assistant; ADMITTING PHYSICIAN Hospitalist; ATTENDING PHYSICIAN Hospitalist; EMERGENCY PHYSICIAN Emergency Medicine; FAMILY PHYSICIAN Family Medicine
DX: E86.0 Dehydration (principal); R53.1 Weakness; N39.0 Urinary tract infection, site not specified; B96.20 Unspecified Escherichia coli [E. coli] as the cause of diseases classified elsewhere; I10 Essential (primary) hypertension; E78.5 Hyperlipidemia, unspecified; E11.9 Type 2 diabetes mellitus without complications; K21.9 Gastro-esophageal reflux disease without esophagitis; M54.9 Dorsalgia, unspecified; R11.10 Vomiting, unspecified; R19.7 Diarrhea, unspecified; R53.83 Other fatigue; E87.3 Alkalosis; Z79.82 Long term (current) use of aspirin; Z79.84 Long term (current) use of oral hypoglycemic drugs; Z87.440 Personal history of urinary (tract) infections; Z85.828 Personal history of other malignant neoplasm of skin; Z88.6 Allergy status to analgesic agent; Z11.52 Encounter for screening for COVID-19
CPT/HCPCS: 71046; 80053; 81003; 81015; 82805; 82962; 83036; 83690; 83735; 85025; 87040; 87086; 87088; 87186; 87811; 96361; 96365; 97166; 99285; G0378

== ENCOUNTER → 2024-03-17 10:32 | Outpatient (REF) | payer OTHER, SELFPAY | LOC: HWRAD 10:32 | PROVIDERS: ATTENDING PHYSICIAN Family Medicine | DX: R10.11 Right upper quadrant pain (principal) | CPT/HCPCS: 74177; Q9967 ==

== ENCOUNTER 2024-03-18 23:02 | Observation (INO) | payer OTHER, SELFPAY ==
[2024-03-18 18:17] VITALS: BP 107/88
[2024-03-18 18:36] LABS: % Basophils 0.6 % (0-2); % Eosinophils 1.4 % (0-6); % Immature Granulocytes 0.2 % (0-0.5); % Lymphocytes 26.1 % (20.5-51.1); % Monocytes 10.2 % (1.7-9.3); % Neutrophils 61.5 % (42.2-75.2); Absolute Basophils 0.1 10^3/uL (0-0.2); Absolute Eosinophils 0.2 10^3/uL (0-0.7); Absolute Lymphocytes 2.9 10^3/uL (1.2-3.4); Absolute Monocytes 1.2 10^3/uL (0.1-0.6); Absolute Neutrophils 6.9 10^3/uL (1.4-6.5); Hematocrit 37.3 % (37.0-47.0); Mean Corp Hgb Conc. 34.9 g/dL (33.0-37.0); Mean Platelet Volume 10.1 fL (7.4-10.4); Nucleated Red Blood Cells % 0 %; Platelet Count 246 10^3/uL (130-400); Red Blood Cell Count 4.19 10^6/uL (4.20-5.40); Red Cell Dist. Width 12.4 % (11.5-14.5); White Blood Cell Count 11.2 10^3/uL (4.8-10.8)
[2024-03-18 18:51] LABS: ALT (SGPT) 15 U/L (0-35); AST (SGOT) 27 U/L (14-36); Albumin 4.1 g/dl (3.5-5.0); Alkaline Phosphatase 79 U/L (38-126); Blood Urea Nitrogen 32 mg/dl (7-17); Calcium 9.2 mg/dl (8.4-10.2); Carbon Dioxide 25 mmol/L (22-30); Chloride 96 mmol/L (98-107); Glucose 146 mg/dl (70-99); Potassium 3.8 mmol/L (3.5-5.1); Sodium 129 mmol/L (135-145); Total Bilirubin 0.6 mg/dl (0.2-1.3); Total Protein 6.4 g/dl (6.3-8.2); eGFR 30.32
--- NOTE | 2024-03-18 21:36 | ED.GENMED ---
History of Present Illness
General
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
Source: patient
Exam Limitations: none
Time Seen by Provider: 03/18/24 20:56
History of Present Illness
History of Present Illness:
This is a 79 year old female that comes in with c/o not urinating. States that that she has been to her PCP yesterday as last week she had pain near the right rib area and around to the flank States that she wa treated for a UTI. States that this
got better but the pain did not go away. Yesterday she had a CT scan at the [facility] and was told that she has a kidney stone. Patient was given Flomax which she took last night and today. States that she has been drinking a tone of water.
States that she last time she urinated was at 10am. States that she went to the Pool with her granddaughter and she was even in the pool and she did not have to urinate. State that she went home and took a hot shower and has not urinated. States
that her lower abd is achy. Denies any fever, chills, chest pain, SOB, nausea, vomiting, diarrhea, headache, dizziness, urinary burning.
Past History
Past History
ED Past Medical History: Cancer (Skin CA), HTN, Hypercholesterolemia, NIDDM and Other (Back pain, UTI, )
ED Past Surgical History: Gynecological (Ovarian cyst removed)
Social History
Tobacco: Non-smoker
Alcohol: None
Personal:
Living: with family
Review of Systems
Review of Systems
All Other Systems: ROS reviewed and negative except as documented in HPI and ROS
Constitutional: Reports no symptoms; Denies fever or chills
EENT: Reports no symptoms
Respiratory: Reports no symptoms; Denies cough or trouble breathing
Cardiac: Reports no symptoms; Denies chest pain
ABD/GI: Reports abdominal pain (Achy); Denies nausea, vomiting or diarrhea
: Reports other (Urinary retention, No feeling to void)
Musculoskeletal: Reports no symptoms
Skin: Reports no symptoms
Neurological: Reports no symptoms; Denies dizzy or headache
Psychiatric: Reports no symptoms
Phy Exam
General Physical Exam
General Presentation: no apparent distress
General age: appears stated age
General Skin: warm and dry
General Habitus: elderly
General Mental: alert
General Hydration: appears well hydrated
ENT Exam
ENT Exam: TM's normal, pharynx normal and neck supple
Eye Exam
Eye Exam: EOMI
Cardiovascular Exam
Cardiovascular Exam: regular rate/rhythm, no edema, normal peripheral pulses and other (Murmur)
Pulmonary Exam
Pulmonary Exam: lungs clear, no respiratory distress, no rales, chest non tender, no crackles, no rhonchi, no wheezing and no cough
Gastrointestinal Exam
Gastrointestinal Exam: normal bowel sounds, non tender, soft, no organomegaly, no pulsatile mass and non distended
Musculoskeletal Exam
Musculoskeletal Exam: full ROM and no edema
Skin Exam
Skin Exam: normal color, warm/dry, no rash and no petechia
Psychiatric Exam
Psychiatric Exam: normal mood/affect
Course
Orders/Labs/Results
Orders:
Orders
03/18/24 Dinner
Regular
At Your Request: Full Participation
03/18/24 18:24
CMP [Comprehensive Metabolic Panel] Urgent
Complete Blood Count/With Diff Urgent
03/18/24 21:35
Bladder Scan- Treatment ONCE
03/18/24 21:56
Urinalysis Reflex To Culture Urgent
Date Specimen was Collected: 03/18/24
Time Specimen was Collected: 21:47
Urine Microscopic Reflex Cult Urgent
Urine Culture Urgent
INDY Source: U
Specimen Description:
Date Specimen was Collected: 03/18/24
Time Specimen was Collected: 21:47
03/18/24 22:47
Admit/Transfer Patient As Directed
Co-Sign Provider:
Level of Care: Observation services
Assign to:: Medical/Surgical
Physician / Group: derrick
Diagnosis: ureteral stone, donita
Code Status As Directed
Resuscitation Status: Full Code
03/18/24 23:00
Flush (0.9% Sodium Chloride) [Flush (Nss)] See Dose Instructions IV PER PROTOCOL
03/18/24 23:38
0.9% Sodium Chloride 1000 ml [Nss] 1,000 ml IV 100 mls/hr
03/18/24 23:38
UROLOGY CONSULT Routine
Consulting Provider: Atif Santillan
Was physician already notified: Yes
Activity As Directed
Activity Level: As Tolerated
Bladder Scan As Directed
Follow Bladder Retention/Intermittent Cath Algorithm?: Yes
PRN if no void in __ hours: 6
Frequency: Per Retention Algorithm
If Bladder Scan Result >: 400
then:: Straight cath
I/O [Intake/ Output] As Directed
Frequency: q12h
Straight Cath As Directed
Frequency: Per Retention Algorithm
Additional Instructions: straight cath as needed per acute urinary retention algorithm for 24 hrs
Additional Instructions: for bladder scan greater than 400 mL
Strain Urine As Directed
Vital Signs As Directed
Frequency: Per unit guidelines
DX Deep Vein Thrombosis Video Routine
03/19/24 06:00
Complete Blood Count/With Diff IN AM
Comprehensive Metabolic Panel IN AM
03/19/24 08:00
Heparin 5,000 units SC Q12
Sitagliptin Phosphate [Januvia] 25 mg PO DAILY
Tamsulosin [Flomax] 0.4 mg PO DAILY
03/19/24 09:00
Gabapentin [Neurontin] 300 mg PO BID@0900,1500
03/19/24 18:00
Famotidine [Pepcid] 40 mg PO QPM
03/19/24 22:00
Aspirin Low Dose EC [Aspir Low (Enteric Coated)] 81 mg PO HS
Atorvastatin [Lipitor] 40 mg PO HS
Gabapentin [Neurontin] 600 mg PO HS
Abnormal Lab Results
03/18/24 03/18/24
18:24 21:56
WBC 11.2 H 10^3/uL
(4.8-10.8)
RBC 4.19 L 10^6/uL
(4.20-5.40)
Absolute Neuts (auto) 6.9 H 10^3/uL
(1.4-6.5)
Absolute Monos (auto) 1.2 H 10^3/uL
(0.1-0.6)
Monocytes % 10.2 H %
(1.7-9.3)
Sodium 129 L mmol/L
(135-145)
Chloride 96 L mmol/L
(98-107)
BUN 32 H mg/dl
(7-17)
Creatinine 1.7 H mg/dL
(0.6-1.0)
Glucose 146 H mg/dl
(70-99)
Leukocyte Esterase Rfl Trace A
(Negative)
Urine Bacteria (Reflex) Many A
(Negative)
03/18/24 18:24
03/18/24 18:24
Leukocytosis, hyponatremia, Chloride l ow. Acute renal failure. Glucose nonfasting. Urine negative for infection
Vital Signs
Initial and Last Documented VS:
Initial Vital Signs
Temp Pulse Resp BP Pulse Ox
98.2 F 93 20 107/88 98
03/18/24 18:17 03/18/24 18:17 03/18/24 18:17 03/18/24 18:17 03/18/24 18:17
Last Documented Vital Signs
Temp Pulse Resp BP Pulse Ox
98.2 F 69 18 100/62 97
03/19/24 00:32 03/18/24 21:59 03/18/24 21:59 03/19/24 00:31 03/19/24 00:32
MDM/Problems Addressed
Differential Diagnosis Includes:
Urinary retention, UTI, Acute renal failure
MDM/Problems Addressed:
This is a 79 year old female that comes in with c/o no urine output. States that she was told that she had a Renal calculus yesterday. Patient was placed on Flomax for which she has taken 2 doses. Today she has not vomited since 10am and states that
she has been drinking a tone of water.
Will check labs. Bladder scan.
Explained to patient that she in in Renal failure and her sodium is low. Patient had 400ml in the bladder. Costa was place and will admit patient. Hospitalist notified.
Chronic conditions affecting care:
UTi
Acute Exacerbation and/or Progression of Chronic Illness:
UTI
*Pulse Oximetry
Patient hypoxic: no
*EKG
Interpreted by ED Provider?: NA
Rate: EKG- N/A
*Rag Production Worker Interpretation
Rate: Rag Production Worker- N/A
*Critical Care Note
Total Time (30-74mins, 75-104mins- exclusive of procedures): Not Applicable
ED Attending Note
-
Portions of this chart may have been created with voice recognition software.� Occasional wrong word or��sound alike� substitutions may have occurred due to the inherent limitations of voice recognition software.
Discharge Plan
Departure
Patient Disposition: Admit
Date of Disposition: 03/18/24
Time of Disposition: 21:51
Admit to: Med/Surg
Presentation/result/management discussed w/ accepting MD/DO: Hospitalist
Patient with high blood pressure during this ER visit?: No
Condition: Good
Covid-19: Not Applicable
Discharge Problem:
Acute renal failure, Hyponatremia
Interventions
Interventions:
*Risk Screen - Suicide Last Done: 03/18/24 18:17
*General Assessment Last Done: 03/18/24 18:17
*Neglect/Abuse Screening Last Done: 03/18/24 18:17
ED- Fall Risk Assessment Last Done: 03/18/24 22:09
ED-Female Genitourinary Assessment Last Done: 03/18/24 22:09
[2024-03-18 21:56] VITALS: BMI 25.4
[2024-03-18 21:59] VITALS: BP 120/61
[2024-03-18 22:00] VITALS: BP 120/61
[2024-03-18 22:09] LABS: Urine Albumin Negative (Neg - Trace); Urine Bilirubin Negative (Negative); Urine Character Clear (Clear); Urine Color Yellow; Urine Glucose Negative (Negative); Urine Ketone Negative (Negative); Urine Leukocyte Trace (Negative); Urine Nitrite Negative (Negative); Urine Occult Blood Negative (Negative); Urine Urobilinogen Negative (Neg - 1+)
[2024-03-18 22:19] LABS: Urine Calcium Oxalate Crystals Present; Urine Red Blood Cell 0-2 /HPF (0-2); Urine White Cell 0-2 /HPF (0-5)
[2024-03-18 22:20] LABS: Urine Bacteria Many (Negative)
--- NOTE | 2024-03-18 22:52 | HPS.HSE ---
Family Physician
-
Family Physician: MEGHNA Parry
Chief Complaint
-
decreased urination
History of Present Illness
79-year-old female past medical history of hypertension, hyperlipidemia, diabetes, GERD, chronic back pain, presenting with decreased urination. She went to see her primary care physician yesterday as last week she had pain near the right rib area
radiating to the flank. She was treated for UTI with 3 days of Levaquin. Pain did not get better. Yesterday she had a [facility] and was told that she had a kidney stone. Was given Flomax which she took last night and today. She
has been drinking a lot of water. Last time she urinated was at 10 AM this morning. She went to the pool with her granddaughter today. She went home and took a hot shower and has not urinated still. She has some achiness in the lower abdomen.
She denies any fevers or chills, chest pain, shortness of breath, nausea or vomiting, diarrhea, headache, dizziness or urinary burning.
Denies smoking or alcohol use.
Medical History
Past Medical History
Past Medical History: Reports Other (hypertension, hyperlipidemia, diabetes, GERD, chronic back pain,)
Past Surgical History: Reports Other (Gynecological (Ovarian cyst removed))
Social History
Tobacco: Non-smoker
Alcohol: None
Drug: None
Family History
Family History: Not pertinent
Allergies / Home Medications
Allergies reflects when Allergies were last updated in [facility].
Home Medications with original date entered in [facility]
Allergy/Medication List:
Allergies
Allergy/AdvReac Type Severity Reaction Status Date / Time
naproxen [From Aleve] Allergy Hives Verified 03/18/24 18:17
pineapple Allergy Swelling Verified 03/18/24 18:17
ezetimibe AdvReac Unknown Verified 03/18/24 18:17
Home Medications
aspirin 81 mg tablet,delayed release 81 mg PO HS 11/22/23
atorvastatin 40 mg tablet 40 mg PO HS 11/22/23
famotidine 40 mg tablet 40 mg PO QPM 11/22/23
lisinopril 20 mg tablet 20 mg PO DAILY 11/22/23
sitagliptin phosphate 25 mg tablet (Januvia) 25 mg PO DAILY 11/22/23
gabapentin 300 mg capsule 300 mg PO BID@0900,1500 03/18/24
gabapentin 300 mg capsule 600 mg PO HS 03/18/24
tamsulosin 0.4 mg capsule 0.4 mg PO DAILY 03/18/24
Review of Systems
-
History Source: Patient
A 12 point ROS was completed and negative except as noted: Yes
Constitutional: Reports No Symptoms
EENT: Reports No Symptoms
Respiratory: Reports No Symptoms
Cardiac: Reports No Symptoms
Abdomen/GI: Reports See HPI
: Reports See HPI
Musculoskeletal: Reports No Symptoms
Skin: Reports No Symptoms
Neurological: Reports No Symptoms
Endocrine: Reports No Symptoms
Hematologic/Lymphatic: Reports No Symptoms
Psych: Reports No Symptoms
Physical Exam
Vital Signs
Vital Signs
Temp Pulse Resp BP Pulse Ox
97.7 F 69 18 120/61 98
03/18/24 21:59 03/18/24 21:59 03/18/24 21:59 03/18/24 21:59 03/18/24 21:59
Physical Exam
General: Well Developed, Well Nourished and No Apparent Distress
HEENT: NormoCephalic, Moist mucous membranes and Atraumatic
Respiratory: Clear
Cardiac: S1/S2 and Regular Rhythm; No Murmur or Rub
GI: Soft, Non Tender, Normal Bowel Sounds and Tender (right lower abdomen ); No Organomegaly
Rectal: Deferred by Provider
Musculoskeletal: No Clubbing, No Cyanosis and No Edema
Skin: No Rash
Neuro: Nonfocal/grossly intact
Laboratory Results
-
03/18/24 18:24
03/18/24 18:24
Laboratory Results
Total Bilirubin 0.6 mg/dl (0.2-1.3) 03/18/24 18:24
AST 27 U/L (14-36) 03/18/24 18:24
ALT 15 U/L (0-35) 03/18/24 18:24
Alkaline Phosphatase 79 U/L (38-126) 03/18/24 18:24
Data Reviewed
-
Lab Data: Labs Reviewed by me
Old Records: Reviewed
Impression/Plan
-
IMPRESSION:
PLAN:
# 2.5 mm calculus in distal right ureter
-As per CT abdomen pelvis yesterday
-Urinalysis negative for infection
-IV fluids
-Continue tamsulosin
-Urology consulted, and thinks that stone should be able to be passed on its own
-Strain urine
# Acute kidney injury unclear etiology possibly prerenal with possible urinary retention/oliguria
-Bladder scan with 400 cc but patient was able to urinate this amount here so Costa not needed
-IV fluids
-Hold lisinopril
-Check I's and O's
-Bladder scan protocol
#Very mild Hyponatremia
-monitor with IV fluids
Essential hypertension
-Continue prophylactic aspirin
Hyperlipidemia
-Continue statin
Type 2 diabetes
-Continue Januvia
GERD
-Continue Pepcid
Chronic back pain
-Continue gabapentin
Full code
DVT prophylaxis�heparin
Regular diet
[2024-03-19 00:31] VITALS: BP 100/62
[2024-03-19] MEDS: NSS 1000 IV (00:42)
[2024-03-19] MEDS: NEURONTIN 600 MG PO (00:47)
[2024-03-19] MEDS: LIPITOR 40 MG PO (00:47)
[2024-03-19 01:01] VITALS: BP 120/51
[2024-03-19 03:00] VITALS: BP 104/59
[2024-03-19 04:34] VITALS: BMI 24.5
[2024-03-19 04:35] VITALS: BP 110/57
[2024-03-19 06:44] LABS: % Basophils 1.1 % (0-2); % Eosinophils 3.4 % (0-6); % Immature Granulocytes 0.2 % (0-0.5); % Monocytes 10.8 % (1.7-9.3); % Neutrophils 47.5 % (42.2-75.2); Absolute Basophils 0.1 10^3/uL (0-0.2); Absolute Eosinophils 0.2 10^3/uL (0-0.7); Absolute Lymphocytes 2.4 10^3/uL (1.2-3.4); Absolute Monocytes 0.7 10^3/uL (0.1-0.6); Absolute Neutrophils 3.1 10^3/uL (1.4-6.5); Hematocrit 36.1 % (37.0-47.0); Hemoglobin 12.5 g/dL (12.0-16.0); Mean Corp Hgb Conc. 34.6 g/dL (33.0-37.0); Mean Corpuscular Hgb 31.1 pg (27.0-31.0); Mean Corpuscular Volume 89.8 fL (81.0-99.0); Mean Platelet Volume 10.1 fL (7.4-10.4); Nucleated Red Blood Cells % 0 %; Platelet Count 213 10^3/uL (130-400); Red Blood Cell Count 4.02 10^6/uL (4.20-5.40); Red Cell Dist. Width 12.1 % (11.5-14.5); White Blood Cell Count 6.5 10^3/uL (4.8-10.8)
[2024-03-19 07:00] VITALS: BP 123/63
[2024-03-19 07:05] LABS: ALT (SGPT) 13 U/L (0-35); AST (SGOT) 22 U/L (14-36); Albumin 3.6 g/dl (3.5-5.0); Alkaline Phosphatase 78 U/L (38-126); Blood Urea Nitrogen 28 mg/dl (7-17); Calcium 9.4 mg/dl (8.4-10.2); Carbon Dioxide 23 mmol/L (22-30); Chloride 108 mmol/L (98-107); Estimated Creatinine Clearance 31 ml/min; Glucose 106 mg/dl (70-99); Potassium 3.9 mmol/L (3.5-5.1); Sodium 137 mmol/L (135-145); Total Bilirubin 0.7 mg/dl (0.2-1.3); Total Protein 6.3 g/dl (6.3-8.2); eGFR 46.05
--- NOTE | 2024-03-19 08:44 | W.PN.HOSP.TC ---
Today's Communication/Plan
-
Discharge planning
Assessment / Plan
Assessment / Plan
Physical exam:
General: Well Developed, Well Nourished and No Apparent Distress
HEENT: Normocephalic, Atraumatic and Moist Mucous Membranes
Respiratory: Clear to Auscultation; Negative Wheezes, Rales or Rhonchi
Cardiac: Regular Rhythm and S1/S2
GI: Soft, Nontender and Nondistended
Musculoskeletal: No Clubbing, No Cyanosis and No Edema
Neuro: Awake, Alert and Oriented
Psych: Calm
A/P:
# 2.5 mm calculus in distal right ureter
-As per CT abdomen pelvis yesterday
-Urinalysis negative for infection
-IV fluids and can stop
-Continue tamsulosin
-Urology consulted, and thinks that stone should be able to be passed on its own. Urology cleared for discharge today.
-Strain urine
# Acute kidney injury unclear etiology possibly prerenal with possible urinary retention/oliguria
-Creatinine 1.7 upon admission---> 1.2 today with hydration
-Bladder scan with 400 cc but patient was able to urinate this amount here so Costa not needed
-IV fluids
-Hold lisinopril
-Check I's and O's
-Bladder scan protocol
#Very mild Hyponatremia
-Sodium 129 upon admission---> 137 today
-monitor with IV fluids
Essential hypertension
-Continue prophylactic aspirin
Hyperlipidemia
-Continue statin
Type 2 diabetes
-Continue Januvia
GERD
-Continue Pepcid
Chronic back pain
-Continue gabapentin
Full code
DVT prophylaxis�heparin
Regular diet
Anticipated Discharge: Today
Subjective/Interval History
-
Date of Service: March 19, 2024
Patient doing well. No fever or colic
Objective Data
-
Labs:
Laboratory Results
03/19/24
06:23
WBC 6.5
Hgb 12.5
Hct 36.1 L
Plt Count 213
Sodium 137 D
Potassium 3.9
Chloride 108 H
Carbon Dioxide 23
BUN 28 H
Creatinine 1.2 H
Glucose 106 H
Calcium 9.4
Total Bilirubin 0.7
AST 22
ALT 13
Alkaline Phosphatase 78
Vital Signs:
Vital Signs
Temp Pulse Resp BP Pulse Ox
98.4 F 71 18 110/57 97
03/19/24 04:35 03/19/24 04:35 03/19/24 04:35 03/19/24 04:35 03/19/24 04:35
I&O
03/18/24 03/19/24 03/20/24
06:59 06:59 06:59
Intake Total 480 / 480
Output Total 400 / 400
Balance 80 / 80
--- NOTE | 2024-03-19 09:20 | W.PN.URO.CBU ---
Today's Communication / Plan
-
provide strainr and probable discharge
Assessment / Plan
-
passable stone fe no fver lytes wnl feels well no colic no n/v
Diagnosis
-
Date of Service: March 19, 2024
-
Patient Diagnosis:
admiited with donita hyponeatremia due to xcess water intag[ke to help pass 2.5 mm distarl stone mow asx and labs wnl no fever chils
Post Op Day:
Subjective
-
feels well
Objective
-
Vital Signs
Temp Pulse Resp BP Pulse Ox
98.0 F 67 16 123/63 98
03/19/24 07:00 03/19/24 07:00 03/19/24 07:00 03/19/24 07:00 03/19/24 07:00
Intake and Output
03/18/24 03/19/24 03/20/24
06:59 06:59 06:59
Intake Total 480 / 480
Output Total 400 / 400
Balance 80 / 80
Intake:
Oral fluids 480 / 480
Output:
Urine, Voided 400 / 400
Laboratory Results
03/19/24 06:23
03/19/24 06:23
Review of Systems
-
: No Symptoms
Physical Exam
-
General - well developed, well nourished, no acute distress
Chest - clear bilaterally
Abdomen - soft, non-tender, positive bowel sounds, no CVAT, no incisional pain or distention
Genitalia - normal
Rectal - normal
Skin - warm & dry with no rash
Neuro - AOx3, no motor deficits
Extremities - no clubbing, no cyanosis, no edema
Incision - clean, dry
Dressing - clean, dry, intact
Care Review
Data Reviewed
Discussed with: Hospitalist and Nursing
CT Scan: Image Pers Reviewed
[2024-03-19] MEDS: FLOMAX 0.4 MG PO (09:47)
[2024-03-19] MEDS: HEPARIN 5000 UNITS SC (09:48)
[2024-03-19] MEDS: JANUVIA 25 MG PO (09:48)
[2024-03-19] MEDS: NEURONTIN 300 MG PO (09:48)
[2024-03-19 10:52] LABS: Glucose - Point of Care 111 mg/dl (70-99)
[2024-03-19] MEDS: NSS IV (11:05)
--- NOTE | 2024-03-19 11:28 | W.DCSUMMARY ---
Discharge Summary
Discharge Data
Date of Admission: 03/18/24
Date of Discharge: 03/19/24
-
Pending Results: No
Hospital Course
Patient 79 years old female history of hypertension, hyperlipidemia, diabetes mellitus, GERD, chronic back pain, presented to the hospital with flank pain and decreased urination. Patient was found to have ureteral stone and also EMELI. Urology
consulted. CT scan identified 2.5 mm cortical at the distal right ureter. Renal function improved with hydration. Urology feels that her kidney stone will pass spontaneously and she is cleared for discharge today. No signs of active infection
and she has been afebrile and normal white blood cell count and unremarkable for infection urinalysis. She will be discharged in stable condition today.
Discharge Plan
-
Patient Disposition: Home (Routine Discharge)
Discharge Diagnosis/Procedures: Ureteral stone. Acute kidney injury. Hyponatremia.
Diet: Regular
Activity: As tolerated
Blood Work: Please PCP to order CBC, BMP within 1 week
Referrals:
Atif Santillan MD [Active] - (4 - 6 8 ox= glasses call fluid but not plain water call Dr Santillan [phone] if questions or problems need to go to er for fever if pass stone bring to office call for routine appt)
Shirley Castillo, DO [Family Provider] - in less than 1 week
Prescriptions:
Continued
atorvastatin 40 mg Tablet
40 mg PO HS
lisinopril 20 mg Tablet
20 mg PO DAILY
famotidine 40 mg Tablet
40 mg PO QPM
Patient Comments:
03/18/2024: 1/2 hr before dinner
aspirin 81 mg Tablet,Delayed Release (/Ec)
81 mg PO HS
Januvia 25 mg Tablet
25 mg PO DAILY
tamsulosin 0.4 mg capsule
0.4 mg PO DAILY
gabapentin 300 mg capsule
300 mg PO BID@0900,1500
gabapentin 300 mg capsule
600 mg PO HS
Discharge Orders:
Discharge Patient (As Directed); Ordered 03/19/24
Ordered By: Raimundo Chowdary
Discharge Date and Time
Discharge Date/Time: 03/19/24 14:09
Print Language: WELSH
[2024-03-19 13:14] VITALS: BP 141/76
== END 2024-03-19 14:09 | disposition home or self-care (01) ==
LOC: 3 WEST ACU 23:02
PROVIDERS: Clinical Nurse Specialist Family Health; ADMITTING PHYSICIAN Hospitalist; ATTENDING PHYSICIAN Hospitalist; CONSULT PHYSICIAN Specialist; EMERGENCY PHYSICIAN Emergency Medicine; FAMILY PHYSICIAN Family Medicine
DX: N20.2 Calculus of kidney with calculus of ureter (principal); N17.9 Acute kidney failure, unspecified; E87.1 Hypo-osmolality and hyponatremia; R10.9 Unspecified abdominal pain; N39.0 Urinary tract infection, site not specified; E78.00 Pure hypercholesterolemia, unspecified; I10 Essential (primary) hypertension; K21.9 Gastro-esophageal reflux disease without esophagitis; G89.29 Other chronic pain; E11.9 Type 2 diabetes mellitus without complications; M54.9 Dorsalgia, unspecified; Z87.440 Personal history of urinary (tract) infections; Z85.828 Personal history of other malignant neoplasm of skin; Z88.6 Allergy status to analgesic agent; Z88.8 Allergy status to other drugs, medicaments and biological substances; Z91.018 Allergy to other foods; Z79.84 Long term (current) use of oral hypoglycemic drugs
CPT/HCPCS: 51798; 80053; 81003; 81015; 82962; 85025; 87086; 96360; 96361; 99285

== ENCOUNTER 2024-04-08 16:26 | Emergency (ER) | payer OTHER, SELFPAY ==
[2024-04-08 16:32] VITALS: BP 136/115
[2024-04-08 16:58] LABS: % Basophils 0.7 % (0-2); % Eosinophils 1.9 % (0-6); % Immature Granulocytes 0.1 % (0-0.5); % Lymphocytes 32.4 % (20.5-51.1); % Monocytes 9.1 % (1.7-9.3); % Neutrophils 55.8 % (42.2-75.2); Absolute Basophils 0.1 10^3/uL (0-0.2); Absolute Eosinophils 0.2 10^3/uL (0-0.7); Absolute Lymphocytes 2.6 10^3/uL (1.2-3.4); Absolute Monocytes 0.7 10^3/uL (0.1-0.6); Absolute Neutrophils 4.5 10^3/uL (1.4-6.5); Hematocrit 40.9 % (37.0-47.0); Mean Corp Hgb Conc. 34.2 g/dL (33.0-37.0); Mean Corpuscular Hgb 30.2 pg (27.0-31.0); Mean Corpuscular Volume 88.1 fL (81.0-99.0); Nucleated Red Blood Cells % 0 %; Platelet Count 264 10^3/uL (130-400); Red Blood Cell Count 4.64 10^6/uL (4.20-5.40); Red Cell Dist. Width 12.4 % (11.5-14.5); White Blood Cell Count 8.1 10^3/uL (4.8-10.8)
[2024-04-08 17:11] LABS: ALT (SGPT) 13 U/L (0-35); AST (SGOT) 23 U/L (14-36); Albumin 4.3 g/dl (3.5-5.0); Alkaline Phosphatase 70 U/L (38-126); Blood Urea Nitrogen 23 mg/dl (7-17); Calcium 9.7 mg/dl (8.4-10.2); Carbon Dioxide 24 mmol/L (22-30); Chloride 105 mmol/L (98-107); Glucose 141 mg/dl (70-99); Potassium 3.9 mmol/L (3.5-5.1); Sodium 142 mmol/L (135-145); Total Bilirubin 0.6 mg/dl (0.2-1.3); Total Protein 6.6 g/dl (6.3-8.2); eGFR 57.31
[2024-04-08 19:15] VITALS: BP 165/63
[2024-04-08 19:17] VITALS: BP 165/63; BMI 25.2
--- NOTE | 2024-04-08 19:28 | ED.GENMED ---
History of Present Illness
General
Chief Complaint: Flank Pain
Source: patient
Time Seen by Provider: 04/08/24 19:15
History of Present Illness
History of Present Illness:
79-year-old female presents with worsening right flank pain. She was admitted to this hospital 3 weeks ago for right-sided kidney stone with acute kidney injury. She was hydrated and seen by urology and discharged with trial of passage at home.
She denies a fever. She denies vomiting. No urinary symptoms. The pain is a dull ache currently but kept her up all night because of severe pain to the right flank last evening.
Past History
Past History
ED Past Medical History: Cancer (Skin CA), HTN, Hypercholesterolemia, NIDDM and Other (Back pain, UTI, )
ED Past Surgical History: Gynecological (Ovarian cyst removed)
Social History
Tobacco: Non-smoker
Alcohol: None
Personal:
Living: with family
Phy Exam
Physical Exam
Physical Exam:
General: Well-appearing female no acute respiratory
HEENT: Normocephalic atraumatic
Heart: Regular rate and rhythm no murmurs
Lungs: Clear no wheeze
Abdomen: Soft tender to the right costovertebral angle. No guarding rebound normal bowel sounds nondistended
Extremities: No cyanosis
Course
Orders/Labs/Results
Orders:
Orders
04/08/24 16:51
CMP [Comprehensive Metabolic Panel] Urgent
Complete Blood Count/With Diff Urgent
04/08/24 19:32
Urinalysis Reflex To Culture Urgent
Date Specimen was Collected: 04/08/24
Time Specimen was Collected: 19:31
Urine Microscopic Reflex Cult Urgent
Urine Culture Urgent
INDY Source: U
Specimen Description:
Date Specimen was Collected: 04/08/24
Time Specimen was Collected: 19:31
04/08/24 19:36
CT Abd/pel Without Iv Or Oral Urgent
Comment:
Reason For Exam: right flank pain
Abnormal Lab Results
04/08/24 04/08/24
16:51 19:32
Absolute Monos (auto) 0.7 H 10^3/uL
(0.1-0.6)
BUN 23 H mg/dl
(7-17)
Glucose 141 H mg/dl
(70-99)
Urine Ketones Trace A
(Negative)
Urine Bilirubin 1+ A
(Negative)
Leukocyte Esterase Rfl Trace A
(Negative)
Urine Bacteria (Reflex) Moderate A
(Negative)
04/08/24 16:51
04/08/24 16:51
Vital Signs
Initial and Last Documented VS:
Initial Vital Signs
Temp Pulse Resp BP Pulse Ox
98.1 F 69 18 136/115 97
04/08/24 16:32 04/08/24 16:32 04/08/24 16:32 04/08/24 16:32 04/08/24 16:32
Last Documented Vital Signs
Temp Pulse Resp BP Pulse Ox
98.7 F 71 18 143/72 97
04/08/24 19:17 04/08/24 22:04 04/08/24 16:32 04/08/24 21:00 04/08/24 22:00
MDM/Problems Addressed
Differential Diagnosis Includes:
Right flank pain known kidney stone no fever. Labs reviewed with normal kidney functions today. Will recheck CT to evaluate for progress. Urinalysis pending.
*Critical Care Note
Total Time (30-74mins, 75-104mins- exclusive of procedures): Not Applicable
Update Note
Update Note:
CT scan reviewed and demonstrates no obvious acute intra-abdominal pathology. CT scan today read as a stable phlebolith adjacent to the distal ureter. This could be what was thought to be a 2.5 mm ureteral stone 3 weeks ago upon admission.
Urinalysis with some bacteria no blood. Patient has an ache in the right lower abdomen. Appendix not seen or commented on CT. When questioned, patient cannot recall if she still has her appendix. Long discussion with patient after speaking with
emergency room attending and urology. Hard to justify urologic intervention without certainty that there is a stone. She has adnexal mass that has been seen and is stable but is not of the location of her area of tenderness. Patient decided to go
home and follow-up with gynecology. Thing this is reasonable. She was prescribed some pain medicine.
ED Attending Note
-
Portions of this chart may have been created with voice recognition software.� Occasional wrong word or��sound alike� substitutions may have occurred due to the inherent limitations of voice recognition software.
Discharge Plan
Departure
Patient Disposition: Home (Routine Discharge)
Date of Disposition: 04/08/24
Time of Disposition: 22:39
Patient with high blood pressure during this ER visit?: No
Discharge Problem:
Abdominal pain
Instructions: Abdominal Pain
Prescriptions:
New
hydrocodone-acetaminophen 5-325 mg tablet
1 tab PO TID PRN (Reason: Pain) Qty: 10 0RF
No Action
atorvastatin 40 mg Tablet
40 mg PO HS
famotidine 40 mg Tablet
40 mg PO QPM
Patient Comments:
03/18/2024: 1/2 hr before dinner
aspirin 81 mg Tablet,Delayed Release (Dr/Ec)
81 mg PO HS
Januvia 25 mg Tablet
25 mg PO DAILY
gabapentin 300 mg capsule
300 mg PO BID@0900,1500
gabapentin 300 mg capsule
600 mg PO HS
Referrals:
Shirley Castillo, [Family Provider] -
Activity Restrictions/Additional Instructions:
Use medicine as needed for pain. Please return here for worsening symptoms otherwise consider following up with gynecology for further evaluation.
Interventions
Interventions:
*Risk Screen - Suicide Last Done: 04/08/24 19:17
*General Assessment Last Done: 04/08/24 19:17
*Neglect/Abuse Screening Last Done: 04/08/24 19:17
*ED COVID-19 Vaccine History Last Done: 04/08/24 19:17
HS-Zzitfz-Fikdwohzyd Assessment Last Done: 04/08/24 19:17
ED-Female Genitourinary Assessment Last Done: 04/08/24 19:17
Discharge Date and Time
Print Language: ROMANIAN
[2024-04-08 19:49] LABS: Urine Albumin Trace (Neg - Trace); Urine Bilirubin 1+ (Negative); Urine Character Clear (Clear); Urine Color Yellow; Urine Glucose Negative (Negative); Urine Ketone Trace (Negative); Urine Leukocyte Trace (Negative); Urine Nitrite Negative (Negative); Urine Occult Blood Negative (Negative); Urine Specific Gravity 1.025 (<1.030); Urine Urobilinogen Negative (Neg - 1+)
[2024-04-08 20:00] VITALS: BP 151/60
[2024-04-08 20:06] LABS: Urine Mucus Few
[2024-04-08 20:07] LABS: Urine Bacteria Moderate (Negative); Urine Red Blood Cell 0-2 /HPF (0-2)
[2024-04-08 21:00] VITALS: BP 143/72
[2024-04-08] MEDS: NORCO 5/325 1 TABLET PO (22:44)
== END 2024-04-08 22:46 | disposition home or self-care (01) ==
LOC: EMR 16:26
PROVIDERS: Physician Assistant; Student in an Organized Health Care Education/Training Program; EMERGENCY PHYSICIAN Emergency Medicine; FAMILY PHYSICIAN Family Medicine
DX: R10.9 Unspecified abdominal pain (principal); I10 Essential (primary) hypertension; E78.00 Pure hypercholesterolemia, unspecified; E11.9 Type 2 diabetes mellitus without complications; Z85.828 Personal history of other malignant neoplasm of skin; Z87.440 Personal history of urinary (tract) infections; Z87.442 Personal history of urinary calculi; Z79.82 Long term (current) use of aspirin; Z79.84 Long term (current) use of oral hypoglycemic drugs; Z88.6 Allergy status to analgesic agent; Z88.1 Allergy status to other antibiotic agents; Z88.2 Allergy status to sulfonamides; Z88.8 Allergy status to other drugs, medicaments and biological substances; Z91.018 Allergy to other foods
CPT/HCPCS: 99284; 74176; 80053; 81003; 81015; 85025; 87086

== ENCOUNTER 2024-04-11 18:47 | Observation (INO) | payer OTHER, SELFPAY ==
[2024-04-11 08:31] VITALS: BP 182/89
--- NOTE | 2024-04-11 09:46 | ED.GENMED ---
History of Present Illness
<MEGHNA Chavira - Last Filed: 04/13/24 03:35>
General
Chief Complaint: Abdominal Pain
Source: patient
Exam Limitations: none
Time Seen by Provider: 04/11/24 09:16
History of Present Illness
History of Present Illness:
Patient is a 79-year-old female with past medical history of GERD hypertension back pain presents to the ER for evaluation of continued right-sided abdominal and right-sided back pain for the past 1 month. Patient was initially seen here on March 17
(admitted on 03/18 - to 03/19 )and then again 3 days ago with persistent symptoms. Initially first CAT scan on first visit showed a 2.5 mm calculus in the distal right ureter. She reports she never passed it had continued pain and when she was seen
here on April 08 3 days ago repeat CAT scan was done and did not show any urinary calculi or hydronephrosis there was a stable probable phlebolith adjacent to the distal right ureter. Patient had a stable adnexal cystic lesion measuring up to 4.8
cm.
Patient reports when pain initially started she noticed it more in the right upper quadrant and then in the right lower quadrant and now it is not mostly the right back area.
She also reports she has a headache. She has a history of high blood pressure but 2 weeks ago her doctor off of lisinopril because her blood pressure was running very low and she felt like she was going to pass out. Now she reports her blood
pressure is high again and she feels that this is because of the pain.
She denies any urinary frequency urgency or dysuria denies any hematuria denies any nausea vomiting fever chills.
She denies an shortness of breath.
Past History
<MEGHNA Chavira - Last Filed: 04/13/24 03:35>
Past History
ED Past Medical History: Cancer (Skin CA), HTN, Hypercholesterolemia, NIDDM and Other (Back pain, UTI, )
ED Past Surgical History: Gynecological (Ovarian cyst removed)
Social History
Tobacco: Non-smoker
Alcohol: None
Personal:
Living: with family
Review of Systems
<MEGHNA Chavira - Last Filed: 04/13/24 03:35>
Review of Systems
Allergies reviewed?: Yes
All Other Systems: ROS reviewed and negative except as documented in HPI and ROS
Constitutional: Reports no symptoms; Denies fever, fatigue or chills
EENT: Reports no symptoms
Respiratory: Reports no symptoms
Cardiac: Reports no symptoms
ABD/GI: Reports abdominal pain; Denies nausea, vomiting or diarrhea
: Reports flank pain
Musculoskeletal: Reports no symptoms
Skin: Reports no symptoms
Neurological: Reports no symptoms
Hematologic/Lymphatic: Reports no symptoms
Psychiatric: Reports no symptoms
Phy Exam
<MEGHNA Chavira - Last Filed: 04/13/24 03:35>
General Physical Exam
General Presentation: no apparent distress
General age: appears stated age
General Skin: warm and dry
General Habitus: normal
Course
<MEGHNA Chavira - Last Filed: 04/13/24 03:35>
Orders/Labs/Results
Orders:
Orders
04/11/24 08:35
Electrocardiogram (*1) Urgent
Reason for Study: Abdominal Pain
EKG- Treatment ONCE
04/11/24 09:46
IV Insert/Care/Rem.- Treatment PRN
0.9% Sodium Chloride 1000 ml [Nss] 1,000 ml IV BOLUS
Acetaminophen 1000MG/100Ml [Ofirmev] 1,000 mg in 100 ml IV ONCE
Acetaminophen IV Indication:: ED Narcotic Naive Pt-ONCE
04/11/24 10:11
Complete Blood Count/With Diff Urgent
Comprehensive Metabolic Panel Urgent
Lipase Urgent
04/11/24 10:15
CT Abd/pelvis W Iv Cont Urgent
Comment:
Reason For Exam: persistent right sided abd pain back pain worse
04/11/24 11:15
Urinalysis Reflex To Culture Urgent
Date Specimen was Collected: 04/11/24
Time Specimen was Collected: 10:51
04/11/24 11:40
Gabapentin [Neurontin] 300 mg PO NOW STA
04/11/24 14:26
US Abdomen Limited Urgent
Comment:
Reason For Exam: RUQ pain
04/11/24 17:45
Gabapentin [Neurontin] 300 mg PO NOW STA
04/11/24 18:36
Admit/Transfer Patient As Directed
Co-Sign Provider:
Level of Care: Observation services
Assign to:: Medical/Surgical
Physician / Group: José Antonio
Diagnosis: RUQ pain
04/11/24 20:17
DX Deep Vein Thrombosis Video Routine
04/11/24 20:52
D-Dimer Urgent
04/12/24 18:00
Enoxaparin Sodium [Lovenox] 40 mg SC QPM
Abnormal Lab Results
04/11/24
10:11
MPV 10.5 H fL
(7.4-10.4)
BUN 19 H mg/dl
(7-17)
Glucose 122 H mg/dl
(70-99)
04/11/24 10:11
04/11/24 10:11
Vital Signs
Initial and Last Documented VS:
Initial Vital Signs
Temp Pulse Resp BP Pulse Ox
98.3 F 87 18 182/89 100
04/11/24 08:31 04/11/24 08:31 04/11/24 08:31 04/11/24 08:31 04/11/24 08:31
Last Documented Vital Signs
Temp Pulse Resp BP Pulse Ox
98.5 F 83 16 133/89 98
04/12/24 07:35 04/12/24 07:35 04/12/24 07:35 04/12/24 07:35 04/12/24 08:30
<Lara Lanier, DO - Last Filed: 04/11/24 14:57>
Orders/Labs/Results
Orders:
Orders
04/11/24 08:35
Electrocardiogram (*1) Urgent
Reason for Study: Abdominal Pain
EKG- Treatment ONCE
04/11/24 09:46
IV Insert/Care/Rem.- Treatment PRN
0.9% Sodium Chloride 1000 ml [Nss] 1,000 ml IV BOLUS
Acetaminophen 1000MG/100Ml [Ofirmev] 1,000 mg in 100 ml IV ONCE
Acetaminophen IV Indication:: ED Narcotic Naive Pt-ONCE
04/11/24 10:11
Complete Blood Count/With Diff Urgent
Comprehensive Metabolic Panel Urgent
Lipase Urgent
04/11/24 10:15
CT Abd/pelvis W Iv Cont Urgent
Comment:
Reason For Exam: persistent right sided abd pain back pain worse
04/11/24 11:15
Urinalysis Reflex To Culture Urgent
Date Specimen was Collected: 04/11/24
Time Specimen was Collected: 10:51
04/11/24 11:40
Gabapentin [Neurontin] 300 mg PO NOW STA
04/11/24 14:26
US Abdomen Limited Urgent
Comment:
Reason For Exam: RUQ pain
04/11/24 17:45
Gabapentin [Neurontin] 300 mg PO NOW STA
04/11/24 18:36
Admit/Transfer Patient As Directed
Co-Sign Provider:
Level of Care: Observation services
Assign to:: Medical/Surgical
Physician / Group: José Antonio
Diagnosis: RUQ pain
04/11/24 20:17
DX Deep Vein Thrombosis Video Routine
04/11/24 20:52
D-Dimer Urgent
04/12/24 18:00
Enoxaparin Sodium [Lovenox] 40 mg SC QPM
Abnormal Lab Results
04/11/24
10:11
MPV 10.5 H fL
(7.4-10.4)
BUN 19 H mg/dl
(7-17)
Glucose 122 H mg/dl
(70-99)
04/11/24 10:11
04/11/24 10:11
Vital Signs
Initial and Last Documented VS:
Initial Vital Signs
Temp Pulse Resp BP Pulse Ox
98.3 F 87 18 182/89 100
04/11/24 08:31 04/11/24 08:31 04/11/24 08:31 04/11/24 08:31 04/11/24 08:31
Last Documented Vital Signs
Temp Pulse Resp BP Pulse Ox
98.5 F 83 16 133/89 98
04/12/24 07:35 04/12/24 07:35 04/12/24 07:35 04/12/24 07:35 04/12/24 08:30
<MEGHNA Chavira - Last Filed: 04/13/24 03:35>
MDM/Problems Addressed
MDM/Problems Addressed:
This is patient's third ER visit for pain in the right back and right abdomen. She has had previous CAT scan which was questionable for stone and was admitted during first ER visit however during patient's second visit here April 08 CAT scan was
unremarkable. Patient complains of persistent pain though she is nontoxic-appearing. Abdominal ultrasound is negative with normal appearance of gallbladder and no evidence of biliary ductal dilatation. CAT scan today negative for any abdominal
pathology. Patient does have still cystic mass in the right axilla which was seen on previous. Patient with normal white count normal chemistries
Because of persistent intractable pain will adm . ddimer ordered and pending. d/c w/ adm service
<MEGHNA Chavira - Last Filed: 04/13/24 03:35>
*Radiology
Radiology exam reviewed: radiology read reviewed
*Pulse Oximetry
Patient hypoxic: no
*Critical Care Note
Total Time (30-74mins, 75-104mins- exclusive of procedures): Not Applicable
Data Reviewed
Review of Other/Old Records Reveals: Labs, Radiology Studies and Discharge Summary
Source: patient
ED Attending Note
<MEGHNA Chavira - Last Filed: 04/13/24 03:35>
-
Portions of this chart may have been created with voice recognition software.� Occasional wrong word or��sound alike� substitutions may have occurred due to the inherent limitations of voice recognition software.
<Lara Lanier DO - Last Filed: 04/11/24 14:57>
ED Attending Note
Patient seen and examined by attending physician: Yes
I performed the substantive portion of visit, reviewed & personally made and approve the management plan that is documented in note by myself or IRISH.: Yes
I performed a history and physical exam of patient and discussed management with resident, I reviewed resident's note and agree with documented findings and plan of care.: Yes
ED Attending Note:
Patient seen and examined at bedside, 79-year-old female presenting for recurrent abdominal pain. This is patient's third visit for right-sided abdominal pain. Patient had initially been seen for the pain, thought to have had a kidney stone, seen
by urology with suspicion that it will pass on its own. Return to the emergency department with worsening pain, had repeat imaging that did not show kidney stone, rather calcification adjacent to the ureter. Unclear etiology of patient's pain at
that time. She returns with pain to the right upper and lower abdominal region. Pain radiates to the back. Denies association with food. Denies fever. Reports history of right nephrectomy after ovarian cyst. Vital signs significant high blood
pressure.
On exam, patient well-appearing, nontoxic. Focal tenderness to the right upper quadrant, with mild tenderness to the right lower quadrant as well. On review of EMR, patient had CT imaging x 2 within the past month, no acute findings to explain
patient's pain. Given recurrence, plan for repeat imaging and laboratory analysis. Patient denies any respiratory symptoms or chest pain, lower suspicion for a pulmonary cardiac pathology.
14:40 - CT without acute pathology. Given location of pain, will obtain right upper quadrant ultrasound imaging to ensure normal gallbladder, however low suspicion given CT evidence of normal gallbladder, no association with food.
Discharge Plan
Departure
Patient Disposition: Admit
Date of Disposition: 04/11/24
Time of Disposition: 18:28
Admit to: Med/Surg
Admit to doctor: hospitalist
Presentation/result/management discussed w/ accepting MD/DO: Hospitalist
Patient with high blood pressure during this ER visit?: Yes
Condition: Fair
Covid-19: Not Applicable
Discharge Problem:
Intractable back pain, Intractable abdominal pain
Interventions
Interventions:
*Risk Screen - Suicide Last Done: 04/11/24 21:11
*General Assessment Last Done: 04/11/24 10:00
*Neglect/Abuse Screening Last Done: 04/11/24 10:00
ED- Fall Risk Assessment Last Done: 04/11/24 10:00
*ED COVID-19 Vaccine History Last Done: 04/11/24 21:05
*Nursing Disposition Last Done: 04/11/24 20:19
GC-Cpelqc-Gpawqeqihs Assessment Last Done: 04/11/24 10:00
Discharge Date and Time
Discharge Date/Time: 04/11/24 20:20
[2024-04-11] MEDS: NSS 1000 IV (10:11)
[2024-04-11] MEDS: OFIRMEV 100 IV (10:12)
[2024-04-11 10:49] LABS: ALT (SGPT) 13 U/L (0-35); AST (SGOT) 22 U/L (14-36); Albumin 4.2 g/dl (3.5-5.0); Alkaline Phosphatase 87 U/L (38-126); Blood Urea Nitrogen 19 mg/dl (7-17); Calcium 9.8 mg/dl (8.4-10.2); Carbon Dioxide 27 mmol/L (22-30); Chloride 103 mmol/L (98-107); Glucose 122 mg/dl (70-99); Lipase 78 U/L (23-300); Potassium 4.1 mmol/L (3.5-5.1); Sodium 141 mmol/L (135-145); Total Bilirubin 0.6 mg/dl (0.2-1.3); Total Protein 6.4 g/dl (6.3-8.2); eGFR > 60.00
[2024-04-11 10:57] LABS: % Basophils 0.7 % (0-2); % Eosinophils 1.4 % (0-6); % Immature Granulocytes 0.1 % (0-0.5); % Lymphocytes 29.9 % (20.5-51.1); % Monocytes 7.5 % (1.7-9.3); % Neutrophils 60.4 % (42.2-75.2); Absolute Basophils 0.1 10^3/uL (0-0.2); Absolute Eosinophils 0.1 10^3/uL (0-0.7); Absolute Lymphocytes 2.1 10^3/uL (1.2-3.4); Absolute Monocytes 0.5 10^3/uL (0.1-0.6); Absolute Neutrophils 4.2 10^3/uL (1.4-6.5); Hematocrit 40.4 % (37.0-47.0); Mean Corp Hgb Conc. 34.7 g/dL (33.0-37.0); Mean Corpuscular Hgb 30.4 pg (27.0-31.0); Mean Corpuscular Volume 87.8 fL (81.0-99.0); Mean Platelet Volume 10.5 fL (7.4-10.4); Nucleated Red Blood Cells % 0 %; Platelet Count 236 10^3/uL (130-400); Red Cell Dist. Width 12.3 % (11.5-14.5)
[2024-04-11 11:23] LABS: Urine Albumin Negative (Neg - Trace); Urine Bilirubin Negative (Negative); Urine Character Clear (Clear); Urine Color Yellow; Urine Glucose Negative (Negative); Urine Ketone Negative (Negative); Urine Leukocyte Negative (Negative); Urine Nitrite Negative (Negative); Urine Occult Blood Negative (Negative); Urine Specific Gravity 1.015 (<1.030); Urine Urobilinogen Negative (Neg - 1+)
[2024-04-11] MEDS: NEURONTIN 300 MG PO ×2 (11:57→17:50)
[2024-04-11 13:25] VITALS: BP 167/72
[2024-04-11 18:12] VITALS: BP 164/84
--- NOTE | 2024-04-11 19:18 | HPS.HSE ---
Family Physician
-
Family Physician: Shirley Castillo
Chief Complaint
-
Right flank pain
History of Present Illness
79-year-old female she has been dealing with a right flank to right upper quadrant pain since end of February, this is her third ER visit since then, she had a CT abdomen pelvis in March 17 which showed 2.5 mm stone in the right distal ureter then and
since that she had a couple more CAT scan and ultrasound of the abdomen including today which showed no stone in the right ureter and no any other abnormality explaining her pain.
Admit the pain is persistent fluctuating severity, have no relieving aggravating factor like eating or drinking or moving around.
Denies urinary or bowel symptoms like incontinence or any lower extremity pain or weakness or saddle anesthesia.
She has chronic back pain and she is scheduled to have lumbar spine surgery sometime in April. Admits she has been getting gabapentin and pain medication and she is having severe pain in the left leg but now she has no pain.
Denies any fever or chill or any cough or congestion or any chest pain or shortness of breath or fever or chill or weight change, no bleeding event or change in stool or urine color.
The ER she received pain medication currently her pain is better and accompanied by her at the bedside and she is awake, alert and oriented x 3 and all appropriate conversation
Medical History
Past Medical History
Past Medical History: Reports Other
Additional Past Medical History:
Past medical history Reviewed:
Hypertension
Recent ureteral stone
Dyslipidemia
GERD
Diabetes mellitus
Chronic back pain
Chronic right adnexal cystic mass
Surgical history:
Endoscopy
Tonsillectomy
Endometrial biopsy eye surgery
Mohs surgery
Social history: Lives at home with her independently, no smoking alcohol use.
Family history: Reviewed and noncontributory
Past Surgical History: Reports Other
Social History
Unable to obtain full social history at this time due to: Other
Family History
Family History: Other
Allergies / Home Medications
Allergies reflects when Allergies were last updated in [employer].
Home Medications with original date entered in [facility]
Allergy/Medication List:
Allergies
Allergy/AdvReac Type Severity Reaction Status Date / Time
naproxen [From Aleve] Allergy Hives Verified 04/11/24 08:31
pineapple Allergy Swelling Verified 04/11/24 08:31
sulfamethoxazole Allergy Unknown Verified 04/11/24 08:31
[From Bactrim]
trimethoprim [From Bactrim] Allergy Unknown Verified 04/11/24 08:31
ezetimibe AdvReac Unknown Verified 04/11/24 08:31
Home Medications
aspirin 81 mg tablet,delayed release 81 mg PO HS Autoimmune Disorder 11/22/23
atorvastatin 40 mg tablet 40 mg PO HS High Cholesterol 11/22/23
famotidine 40 mg tablet 40 mg PO QPM Gastrointestinal Issue 11/22/23
sitagliptin phosphate 25 mg tablet (Januvia) 25 mg PO DAILY Diabetes 11/22/23
gabapentin 300 mg capsule 300 mg PO BID@0900,1500 Neurological Condition 03/18/24
gabapentin 300 mg capsule 600 mg PO HS Neurological Condition 03/18/24
hydrocodone 5 mg-acetaminophen 300 mg tablet 1 tab PO Q8HPRN PRN moderate pain 04/11/24
lisinopril 20 mg tablet 20 mg PO DAILY 04/11/24
Review of Systems
-
A 12 point ROS was completed and negative except as noted: Yes
Physical Exam
Vital Signs
Vital Signs
Temp Pulse Resp BP Pulse Ox
98.3 F 89 18 164/84 96
04/11/24 08:31 04/11/24 18:12 04/11/24 18:12 04/11/24 18:12 04/11/24 18:12
Physical exam:
General: Awake, alert and oriented x3, not in distress and holds appropriate conversation.
HEENT: No active discharge, ecchymosis or bruising, moist lips, tongue and mucous membrane.
Eyes: No discharge or red conjunctiva, no nystagmus, pupils are reactive and equal
Neck:Supple, no JVD no bruit no goiter.
Respiratory: Normal AP contour and diameter, normal chest wall movement, normal respiratory effort, no respiratory distress,
Lungs: Good air entry bilaterally, no wheezing or rhonchi, no rales or crackles
Heart: S1, S2 regular, normal rate, no added sound.
Gastrointestinal: Positive bowel sounds, soft, right upper abdominal tenderness with no guarding or rigidity or organomegaly
Musculoskeletal: Right paralumbar spine area tenderness with no skin abnormality or rash ulceration or red, no chest wall abnormality or tenderness. All joints and extremities have good range of motion, no any other muscle tenderness or any joint
swelling or tenderness.
Extremities: No pitting edema, good peripheral pulses, good range of motion
Skin: Warm and dry, no ulceration, normal color.
Neurological: Awake, alert and oriented x3, speech clear and comprehensive speech clear and comprehensive, good muscle tone, normal sensory and motor function
Psychiatric: Normal mood, normal thought and judgment, normal affect,
Physical Exam
General: Other
Laboratory Results
-
04/11/24 10:11
04/11/24 10:11
Laboratory Results
Total Bilirubin 0.6 mg/dl (0.2-1.3) 04/11/24 10:11
AST 22 U/L (14-36) 04/11/24 10:11
ALT 13 U/L (0-35) 04/11/24 10:11
Alkaline Phosphatase 87 U/L (38-126) 04/11/24 10:11
Lipase 78 U/L (23-300) 04/11/24 10:11
CT abdomen and pelvis: No acute pathology of the abdomen or pelvis identified.
Mild fecal material in the colon. Improved.
Cystic mass of the right adnexa. Stable. Uncommon in postmenopausal females. Stable from 03/2023 suggesting this is likely benign. This may be a postoperative seroma or lymphocele. The right ovary was removed 2019.
Upper abdominal ultrasound: Normal appearance of the gallbladder with no evidence for biliary ductal dilation.
Liver appears within normal limits.
Data Reviewed
-
CT Scan: Image Personally Visualized and interpreted, Discussed with Patient and Discussed with Family
Medical Tests (Nuc Med, Echo, EKG etc): Report Reviewed by me, Discussed with Patient and Discussed with Family
Lab Data: Labs Reviewed by me, Discussed with Patient and Discussed with Family
Old Records: Reviewed
Impression/Plan
-
IMPRESSION:
79-year-old female presented to the hospital for persistent and changing in severity right upper quadrant and right flank pain since end of February, possibly musculoskeletal, there is no evidence of renal ultrasound and no UTI and no evidence of
cholecystitis, possibly to be related to musculoskeletal or her chronic back pain specially the paraspinal muscle and lumbar area very tender is high while at the possibility could be related to gallbladder hypofunctioning but unlikely.
Right upper quadrant right flank pain, likely musculoskeletal from the chronic back pain as she is scheduled for surgery in April of lumbar spine while gallbladder hypofunctional or cystic duct obstruction could be a possibility but unlikely.
Doubt shingles and there is no dasilva and patient going on for a month
Apply lidocaine patch and heat pad
IV morphine as she was taking hydrocodone at home
Continue her home dose of gabapentin in the daytime, as she was concerned about her night pain and taking it close to the hydrocodone she is taking it at home. Especially she is going to be on morphine as needed.
If it is not helping then may consider HIDA scan as discussed with the patient
PT
Hypertension: Continue lisinopril monitor blood pressure closely
Diabetes: Continue Januvia, Glucoscan monitor blood sugar
GERD: Continue her home famotidine
Chronic back pain: Manage as above and she is scheduled for lumbar spine surgery in April
Discussed with the patient and her in detail expressed understanding
CODE STATUS full code
DVT prophylax Lovenox
[2024-04-11 20:57] VITALS: BP 178/86; BMI 24.8
[2024-04-11 21:16] LABS: D-Dimer 0.74 ug/mlFEU (0.00-0.50)
[2024-04-11] MEDS: LIPITOR 40 MG PO (22:03)
[2024-04-11] MEDS: TYLENOL 1000 MG PO (22:04)
[2024-04-11] MEDS: ASPIR LOW (ENTERIC COATED) 81 MG PO (22:04)
[2024-04-11] MEDS: LIDOCAINE 4% PATCH 1 PATCH TOPICAL (22:12)
[2024-04-11 23:32] VITALS: BP 128/67
[2024-04-12 07:35] VITALS: BP 133/89
[2024-04-12 07:44] LABS: Glucose - Point of Care 129 mg/dl (70-99)
[2024-04-12] MEDS: JANUVIA 25 MG PO (08:43)
[2024-04-12] MEDS: ZESTRIL 20 MG PO (08:43)
[2024-04-12] MEDS: NEURONTIN 300 MG PO (08:43)
--- NOTE | 2024-04-12 09:55 | W.PN.HOSP.TC ---
Addendum entered and electronically signed by Robbie Randhawa MD 04/12/24 10:08:
I saw and evaluated the patient. I reviewed the resident�s note and agree with findings and plan as documented in the resident�s note.
Patient reports 7/10 right upper quadrant and right flank pain.
Gen: NAD, AAOx3.
Eyes: EOMI, PERRLA, no scleral icterus.
Neck: supple.
CV: RRR, +S1/S2, no m/r/g.
Resp: CTAB, no rales, wheezes, or rhonchi.
Abd: +BS, soft, RUQ TTP, ND
Skin: No rashes.
MSK: R flank pain with palpation
Neuro: CN 2-12 intact, non-focal.
Psych: Normal mood and affect.
RUQ and R flank pain:
-CT A/P and RUQ U/S unremarkable
-CMP/CBC unremarkable
-hemodynamically stable, afebrile
-likely MSK pain
-short prednisone taper, flexeril trial
-d/c later today
Total time spent on d/c = 40 min. This included today's physical exam, progress note, review of laboratory and diagnostic data, preparation of discharge documents and prescriptions, and discussions about the pt's hospital course and discharge plan
with the patient and other medical driver involved in the patient's care.
Original Note:
Today's Communication/Plan
-
Discharge today on prednisone taper
Assessment / Plan
Assessment / Plan
79-year-old female with severe right upper quadrant and right flank pain with no evidence of cause on imaging.
#Right upper quadrant right flank pain, likely musculoskeletal from the chronic back pain
Scheduled for surgery in April of lumbar spine while gallbladder hypofunctional or cystic duct obstruction could be a possibility but unlikely. Doubt shingles and there is no dasilva and patient going on for a month
Apply lidocaine patch and heat pad
IV morphine as she was taking hydrocodone at home
Continue her home dose of gabapentin in the daytime, as she was concerned about her night pain and taking it close to the hydrocodone she is taking it at home. Especially she is going to be on morphine as needed.
If it is not helping then may consider HIDA scan as discussed with the patient
PT
Discharge patient on steroid taper as musculoskeletal is the most likely explanation
#Hypertension: Continue lisinopril monitor blood pressure closely
#Diabetes: Continue Januvia, Glucoscan monitor blood sugar
#GERD: Continue her home famotidine
#Chronic back pain: Manage as above and she is scheduled for lumbar spine surgery in April
Anticipated Discharge: Today
Subjective/Interval History
-
Date of Service: April 12, 2024
Objective Data
-
Vital Signs:
Vital Signs
Temp Pulse Resp BP Pulse Ox
98.5 F 83 16 133/89 98
04/12/24 07:35 04/12/24 07:35 04/12/24 07:35 04/12/24 07:35 04/12/24 07:35
Review of Systems
-
History Source: Patient
EENT: Reports No Symptoms Reported
Respiratory: Reports No Symptoms
Cardiac: Reports No Symptoms
Abdomen/GI: Reports Abdominal Pain
Genitourinary: Reports No Symptoms
Neuro: Reports No Symptoms
Physical Exam
-
General: Well Developed, Well Nourished and No Apparent Distress
Respiratory: Clear to Auscultation
Cardiac: Regular Rhythm and S1/S2
GI: Soft, Nondistended and Tender (RUQ and RLQ inguinal area)
Neuro: AO x 3
Psych: Calm
[2024-04-12] MEDS: DELTASONE 40 MG PO (10:16)
[2024-04-12 10:35] VITALS: BP 133/89; O2SAT 98
[2024-04-12 11:12] LABS: Glycohemoglobin (HgbA1c) 6.3 % (4.0-5.6)
[2024-04-12 11:50] LABS: Glucose - Point of Care 128 mg/dl (70-99)
--- NOTE | 2024-04-12 12:23 | W.DCSUMMARY ---
Addendum entered and electronically signed by Robbie Randhawa MD 04/12/24 13:11:
Read, reviewed, and agree. See same day progress note for additional details.
Original Note:
Discharge Summary
Discharge Data
Date of Admission: 04/11/24
Date of Discharge: 04/12/24
-
Pending Results: No
Hospital Course
Primary Diagnosis:
Right upper quadrant and right flank pain, likely musculoskeletal
Secondary diagnosis:
Hypertension
Diabetes
GERD
Chronic back pain
Dayna is a 79 y/o female who presented to the ED on 04/11/2024 with RUQ pain and right sided back pain for the past month. Patient was initially seen here on March 17 (admitted on 03/18 - to 03/19 )and then again on 04/08 with persistent symptoms.
Initially first CAT scan on showed a 2.5 mm calculus in the distal right ureter. She reports she never passed it had continued pain and when she was seen here on 04/08, repeat CAT scan was done and did not show any urinary calculi or hydronephrosis.
There was a stable probable phlebolith adjacent to the distal right ureter. Patient had a stable adnexal cystic lesion measuring up to 4.8 cm. In ED, WBC, LFTs, UA all normal. Abdominal/pelvic CT and Abdomen US showed no evidence of etiology (note
below). Physical exam reveals RUQ and RLQ (more inguinal) tenderness along with right paralumbar spine tenderness but no rash or swelling suggestive of cause. Pt is scheduled for surgery in April of lumbar spine. Pt admitted with IV morphine as
pt was on hydrocodone at home, lidocaine patch and heat pad. She also continued her gabapentin.
Today, Patient is clinically stable for discharge. Patient is being started on a short prednisone taper for suspected musculoskeletal etiology along with a low dose Cyclobenzaprine with instructions that it is best to take before bed. Patient
recommended to follow up with PCP for further evaluation.
04/11/2024 Ab/Pelvic CT
-Lung Bases: There is mild right lower lobe lingular atelectasis versus scarring.
-Bone: Osseous structures of the abdomen and pelvis show mild degenerative disease.
-Abdomen and pelvis: The liver, spleen, gallbladder and pancreas are unremarkable. The adrenal glands and kidneys are unremarkable. The abdominal aorta is normal caliber. No significant lymphadenopathy is noted. Bowel loops are normal caliber. The
terminal ileum is within normal limits. The appendix is not visualized. There is mild fecal material in the colon There is a small hiatal hernia
-No free fluid is noted. The urinary bladder is unremarkable.
-There is a macrolobulated cystic mass in the right adnexa seen best on image 63 series 201. It measures 5.1 x 0.7 cm. This is likely ovarian in origin.
IMPRESSION:
-No acute pathology of the abdomen or pelvis identified.
-Mild fecal material in the colon. Improved.
-Cystic mass of the right adnexa. Stable. Uncommon in postmenopausal females. Stable from 03/2023 suggesting this is likely benign. This may be a postoperative seroma or lymphocele. The right ovary was removed 2019.
04/11/2024 Abdominal US
Limited ultrasound of the abdomen is performed.
The gallbladder appears normal with no evidence for gallbladder wall thickening or pericholecystic edema. The patient has a negative sonographic Philip's sign.
There is no evidence for biliary ductal dilation. The common bile duct measures 4 mm, within normal limits of less than 8 mm in this 79-year-old.
Liver length is 12.0 cm, within normal range of less than 18 cm.
Liver echogenicity is probably within normal range with no evidence of a focal hepatic lesion.
No other abdominal structures were evaluated on this limited ultrasound.
IMPRESSION:
-Normal appearance of the gallbladder with no evidence for biliary ductal dilation.
-Liver appears within normal limits.
04/08/2024 Ab/Pelvic CT
Evaluation is limited by lack of intravenous contrast.
Visualized portion of the lung bases are unremarkable. Small hiatal hernia.
The liver, spleen, kidneys, adrenal glands and pancreas are unremarkable. Gallbladder present.
Moderate atherosclerotic calcifications. No abdominal aortic aneurysm.
No enlarged lymph nodes, free fluid, or free air. The bowel is without evidence of obstruction or adjacent inflammatory changes. Mild diffuse colonic stool burden.
Bladder unremarkable. Stable probable phlebolith adjacent to the distal right ureter.
Stable slightly complex right adnexal cystic lesion measuring up to 4.8 cm.
No suspicious osseous lesions.
IMPRESSION:
1. No significant acute abnormality identified in the abdomen or pelvis, within the limits of unenhanced CT, as described above. No convincing urinary calculi or hydronephrosis. Stable probable phlebolith adjacent to the distal right ureter.
2. Mild diffuse colonic stool burden may reflect constipation.
Discharge Plan
-
Patient Disposition: Home (Routine Discharge)
Discharge Diagnosis/Procedures: Right upper quadrant and right flank pain, likely musculoskeletal
Condition: Good
Diet: As tolerated
Activity: As tolerated
Driving Restrictions: As prior to admission
Bathing Restrictions: None
Referrals:
Shirley Castillo, DO [Family Provider] - in less than 1 week
Additional Discharge Medication Instructions: Prednisone: 20mg (2 tabs) for two days, then 10 mg (one tab) for the following two days.
Cyclobenzaprine: Before bed to relax muscles. Can make you feel groggy.
Prescriptions:
New
prednisone 10 mg tablet
10 mg PO DIRECTED Qty: 6 0RF
Rx Instructions:
20mg for two days, 10mg for two days.
cyclobenzaprine 5 mg tablet
5 mg PO TID PRN (Reason: muscle spasm) Qty: 7 0RF
prednisone 10 mg tablet
10 mg PO DIRECTED Qty: 6 0RF
Rx Instructions:
Taper: 20mg daily x 2 days, 10mg daily x 2 days
Continued
atorvastatin 40 mg Tablet
40 mg PO HS
famotidine 40 mg Tablet
40 mg PO QPM
Patient Comments:
03/18/2024: 1/2 hr before dinner
aspirin 81 mg Tablet,Delayed Release (Dr/Ec)
81 mg PO HS
Januvia 25 mg Tablet
25 mg PO DAILY
gabapentin 300 mg capsule
300 mg PO BID@0900,1500
gabapentin 300 mg capsule
600 mg PO HS
lisinopril 20 mg tablet
20 mg PO DAILY
Discontinued
hydrocodone-acetaminophen 5-300 mg tablet
1 tab PO Q8HPRN PRN (Reason: moderate pain)
Discharge Orders:
Discharge Patient (As Directed); Ordered 04/12/24
Ordered By: Robbie Randhawa
Discharge Date and Time
Print Language: KHMER
--- NOTE | 2024-04-12 12:34 | CM ---
Patient seen at bedside with patient son also present. Patient stated that she lives with in a 2 story home. Patient has a walker and cane at home but not using therm. Patient reviewed OBS/[facility] form with CM and signed form placed on chart.
Patient stated that would be able to transport her home. Patient PCP is Dr. Castillo and she uses the [facility] in [place]. Patient was going to outpatient therapy and will need a prescription for outpatient therapy to resume. CM will continue to
follow for discharge planning home.
Plan; home with no needs; updated prescription for outpatient therapy
[2024-04-13 19:51] LABS: Hepatitis C Antibody Negative (Negative)
== END 2024-04-12 13:41 | disposition home or self-care (01) ==
LOC: 2 NORTH 18:47
PROVIDERS: Nurse Practitioner; ADMITTING PHYSICIAN Internal Medicine; ATTENDING PHYSICIAN Internal Medicine; EMERGENCY PHYSICIAN Student in an Organized Health Care Education/Training Program; FAMILY PHYSICIAN Family Medicine
DX: R10.9 Unspecified abdominal pain (principal); R10.11 Right upper quadrant pain; M54.9 Dorsalgia, unspecified; G89.29 Other chronic pain; R22.2 Localized swelling, mass and lump, trunk; I10 Essential (primary) hypertension; K21.9 Gastro-esophageal reflux disease without esophagitis; R51.9 Headache, unspecified; K44.9 Diaphragmatic hernia without obstruction or gangrene; I49.3 Ventricular premature depolarization; I70.90 Unspecified atherosclerosis; E78.00 Pure hypercholesterolemia, unspecified; E11.9 Type 2 diabetes mellitus without complications; Z87.440 Personal history of urinary (tract) infections; Z85.828 Personal history of other malignant neoplasm of skin; Z88.6 Allergy status to analgesic agent; Z88.2 Allergy status to sulfonamides; Z88.1 Allergy status to other antibiotic agents; Z79.82 Long term (current) use of aspirin; Z79.84 Long term (current) use of oral hypoglycemic drugs; Z78.0 Asymptomatic menopausal state; Z90.721 Acquired absence of ovaries, unilateral
CPT/HCPCS: 74177; 76705; 80053; 81003; 82962; 83036; 83690; 85025; 85379; 86803; 93005; 96361; 96374; 97162; 99285; G0378; Q9967